=== PATIENT | female | born 1960 | race Caucasian/White ===

== ENCOUNTER 2016-07-13 21:09 | Inpatient (IN) | payer BC, OTHER ==
[~2016-07-13] VITALS: Ht 157.5 cm; Wt 106.5 kg
[~2016-07-13 21:09] MED LIST: ALBUAER INH; ASPI81TA21 PO; ATOR10TA88 PO; BNC40 PO; CYAN10004 PO; ERGO1TAB12 PO; FLUO40CA8 PO; GLC/500 PO; HYDR25TA4 PO; LEVO75TA36 PO; METO50TA7 PO; PLMIN90 INH; SOLI10TA2 PO
[2016-07-13] MEDS ORDERED: METHYLPREDNISOLONE 125 MG VIAL IV STA (21:30)
[2016-07-13] MEDS ORDERED: ALBUT/IPRATROP 3MG/0.5MG NEB 3 ML VIAL INH STA (21:30)
--- NOTE | 2016-07-13 21:52 | DIAGNOSTIC IMAGING REPORT ---
CHEST ONE VIEW PORTABLE CLINICAL HISTORY: cough/sob/syncope dyspnea COMPARISON STUDY: 08/28/2012 FINDINGS: The bones soft tissues and hemidiaphragms are normal. The cardiomediastinal silhouette is normal. The lungs are clear. The pulmonary vasculature is normal. IMPRESSION: Negative chest. Electronically signed by: Jerad Francisco M.D. 07/13/2016 9:50 PM
[2016-07-13 22:00] LABS: BASO % 0.6 %; BASO ABS # 0.04 K/uL (0-0.2); COMPLETE YES; EOS % 0.8 %; HEMATOCRIT 37.5 % (37-47); IG% 0.2 %; LYMPH % 17.2 %; MEAN CELL VOLUME 85.6 fL (80-100); MEAN CORPUSCULAR HEMOGLOBIN 29.2 pg (25-34); MEAN CORPUSCULAR HGB CONC 34.1 g/dl (32-36); MEAN PLATELET VOLUME 9.1 fL (7.4-10.4); MONO % 15.1 %; NEUT % 66.1 %; PLATELET COUNT 282 K/uL (130-400); RED BLOOD COUNT 4.38 M/uL (4.2-5.4); WHITE BLOOD COUNT 6.41 K/uL (4.8-10.8)
[2016-07-13 22:10] LABS: INR 1.1 (0.9-1.1); PARTIAL THROMBOPLASTIN RATIO 1.1; PROTHROMBIN TIME (PATIENT) 11.4 SECONDS (9.0-12.0)
[2016-07-13 22:12] LABS: POINT OF CARE PRO-BNP 169 pg/ml (0-900)
[2016-07-13] MEDS ORDERED: SODIUM CHLORIDE 0.9% 500ML 500 ML IV STA ×2 (22:16→22:27)
[2016-07-13] MEDS ORDERED: SODIUM CHLORIDE 0.9% 1000ML 1,000 ML IV STA (22:16)
[2016-07-13 22:22] LABS: ALT/SGPT 30 U/L (12-78); BLOOD UREA NITROGEN 21 mg/dl (7-18); BUN/CREATININE RATIO 10.2 (10-20); CALCIUM 8.6 mg/dl (8.5-10.1); CARBON DIOXIDE 26 mmol/L (21-32); CHLORIDE 96 mmol/L (98-107); GLUCOSE 138 mg/dl (70-99); MAGNESIUM 1.5 mg/dl (1.8-2.4); POTASSIUM 3.3 mmol/L (3.5-5.1); SODIUM 135 mmol/L (136-145)
[2016-07-13] MEDS ORDERED: LEVO75TA5 PO (22:23)
[2016-07-13] MEDS ORDERED: CYM60 PO (22:23)
[2016-07-13] MEDS ORDERED: PRVC/20 PO (22:23)
[2016-07-13] MEDS ORDERED: TPRSR/50 PO (22:23)
[2016-07-13] MEDS ORDERED: OLME40TA33 PO (22:23)
[2016-07-13] MEDS ORDERED: HYDR25TA5 PO (22:23)
[2016-07-13] MEDS ORDERED: GLC500 PO (22:23)
[2016-07-13] MEDS ORDERED: OPTIRAY 320 IV PRN (22:30)
[2016-07-13 22:33] LABS: ALB/GLOB RATIO 0.9 (0.9-2); ALKALINE PHOSPHATASE 86 U/L (45-117); AST/SGOT 21 U/L (15-37)
[2016-07-14] VITALS (8 sets, daily range): BP systolic 96–135; BP diastolic 41–77; PULSE 89–98; TEMP 36.7–37.2; O2SAT 88–95; Ht 157.5 cm; Wt 106.5 kg
[2016-07-14] MEDS ORDERED: BUDESONIDE 90 MCG INH INH PRN (00:30)
[2016-07-14] MEDS ORDERED: ALUMINUM/MAGNESIUM/SIMETH (MAALOX MAX) 30 ML UDC PO PRN (00:30)
[2016-07-14] MEDS ORDERED: ACETAMINOPHEN 325 MG TAB PO PRN (00:30)
[2016-07-14] MEDS ORDERED: MAGNESIUM HYDROXIDE SUSP 30 ML UDC PO PRN (00:30)
[2016-07-14] MEDS ORDERED: POLYETHYLENE (MIRALAX) 17 GM PACK PO PRN (00:30)
[2016-07-14] MEDS ORDERED: ONDANSETRON INJ 2 MG/ML 2 ML VIAL IV PRN (00:30)
[2016-07-14] MEDS ORDERED: ALBUTEROL HFA 8 GM INHALER INH PRN (00:30)
--- NOTE | 2016-07-14 00:52 | EMERGENCY ROOM VISIT NOTE ---
History First contact with patient: 21:20 Chief Complaint: COUGH Stated Complaint: COUGHING TILL PASSING OUT Nursing Triage Summary: patient with cough and has been passing out with it. total of 4 times today and 2 yesterday/. History of Present Illness The patient is a 56 year old female who presents to the Emergency Department by private vehicle with her family for evaluation of her coughing episodes and syncope. Patient has been sick for the past few days. She reports that she mainly has a cough as well as some occasional shortness of breath and lightheadedness. She's had an ongoing issue with coughing to the point that she passes out. This is not a new issue for the patient when she is ill. She does report, however, that something seems "different" about these episodes of syncope. Typically, when she passes out, it is only for a few seconds and she is alert and aware to where she is at. She reports that most recently after long coughing episodes she has passed out and woken up and been unaware of what has happened. Her daughter, an RN in the emergency department, has witnessed the past 3 episodes and reports that they certainly do seem different from what she remembers over the past 10 years of this condition. She reports that the patient has typically been unconscious for several seconds and awakes somewhat shaky afterwards and unaware of the events which is certainly not typical for the patient. Patient's daughter has been sick with similar symptoms recently. She has had fevers which have waxed and waned throughout the last several days. She complains of body aches and pains. She denies any nasal congestion or sore throat. She reports a mild frontal headache. She reports this is not the worst headache of her life. She rates her current discomfort as a 5/10. The patient denies any dizziness, blurry vision, double vision, slurred speech, facial droop, unilateral weakness/numbness, chest pain, palpitations, hemoptysis , hematochezia, melena, hematuria, or dysuria. Of note, the patient is treated for diabetes, hypertension, and hyperlipidemia. She reports that she recently was placed on Lasix as well as metoprolol. Lasix was added as the patient has had lower extremity edema to the bilateral lower extremities which is increased over the last several months. She's had no imaging studies performed of her lower extremity's to this point. In addition, she was placed on metoprolol in addition to HCTZ and Benicar for better control of her hypertension. Review of Systems A complete 10-point Review of Systems was discussed with the patient, with pertinent positives and negatives listed in the History of Present Illness. All remaining Review of Systems questions can be considered negative unless otherwise specified. Family History Family history was reviewed; no changes noted. Social History Smoking Status: Never Smoker Smokeless Tobacco Use: No Drug Use: none Marital Status: Housing Status: lives with family Occupation Status: employed Current/Historical Medications Scheduled Aspirin Enteric Coated (Ecotrin Or Generic), 81 MG PO DAILY Duloxetine HCl (Duloxetine HCl), 60 MG PO DAILY Hydrochlorothiazide (Hydrochlorothiazide), 25 MG PO DAILY Levothyroxine Sodium (Levothyroxine Sodium), 75 MCG PO DAILY Metformin HCl (Metformin HCl), 500 MG PO BID Metoprolol Succinate (Metoprolol Succinate ER), 50 MG PO QPM Olmesartan Medoxomil (Olmesartan Medoxomil), 40 MG PO DAILY Pravastatin Sod (Pravastatin Sodium), 20 MG PO DAILY Solifenacin (Vesicare), 10 MG PO DAILY Scheduled PRN Albuterol (Proventil Hfa), 2 PUFFS INH Q4-6HRS PRN for Asthma Symptoms/SOB Budesonide (Inhaler) (Pulmicort Flexhaler), 2 PUFFS INH BID PRN for Asthma Symptoms/SOB Allergies Coded Allergies: No Known Allergies (Unverified , 10/03/15) Physical Exam Vital Signs Date Time Temp Pulse Resp B/P Pulse Ox O2 Delivery O2 Flow Rate FiO2 07/13/16 23:48 112/63 07/13/16 23:39 90 21 94 Room Air 07/13/16 23:32 121/68 07/13/16 23:16 119/63 07/13/16 22:39 94 22 94 Room Air 07/13/16 22:25 98/67 07/13/16 22:14 117/60 07/13/16 22:09 90 19 94 Room Air 07/13/16 21:58 93/46 07/13/16 21:55 93/60 07/13/16 21:53 94/61 07/13/16 21:53 79 101/55 96 Room Air 86 94/62 91 93/60 07/13/16 21:52 101/55 07/13/16 21:50 84/67 07/13/16 21:45 94 Room Air 07/13/16 21:39 84 22 95 Room Air 07/13/16 21:38 82 07/13/16 21:36 102/63 07/13/16 21:12 36.8 91 20 94 Room Air Pain Rating (0-10): 5 Physical Exam VITAL SIGNS - Vital signs and nursing notes were reviewed. GENERAL - 56-year-old female appearing her stated age who is in no acute distress. Communicates well with provider and answers questions appropriately. HEAD - NC/AT. EYES - PERRL with EOMI bilaterally. Sclera anicteric. Palpebral conjunctiva pink and moist with no injection noted. EARS - No deformities of external structures noted on gross examination bilaterally. No pain elicited with palpation of the tragus bilaterally. External auditory canals without discharge or otorrhea. Tympanic membranes pearly stern without retraction or bulging. NOSE - Midline and without cyanosis. No epistaxis or purulent drainage noted. Septum midline without deviation or septal hematoma noted. MOUTH/OROPHARYNX - Without perioral cyanosis. Buccal mucosa pink and moist and without leukoplakia. Tongue midline with equal elevation of palate bilaterally. No tonsillar hypertrophy, erythema, or exudates noted. Good dentition noted. NECK - Neck with FROM. Supple to palpation. LUNGS - Chest wall symmetric without accessory muscle use, intercostals retractions, or central cyanosis. Normal vesicular breath sounds CTA B/L. No wheezes, rales, or rhonchi appreciated. CARDIAC - RRR with S1/S2. No murmur, rubs, or gallops appreciated. No reproducible tenderness to palpation appreciated over the anterior chest wall. ABDOMEN - Abdominal contour obese and without pulsations or visible masses. BS normoactive all four quadrants. No tenderness, palpable masses, hepatosplenomegaly, or ascites noted. EXTREMITIES - No clubbing or peripheral cyanosis. Mild pretibial edema present. +3/5 radial and dorsalis pedis pulses palpated throughout. +5/5 strength noted in UE/LE bilaterally. NEUROLOGIC - Cranial nerves II through XII grossly intact. Sensory intact to light touch throughout. PSYCH - A&Ox3 and cooperates fully with examiner. Pt is very pleasant and interacts well with examiner. Medical Decision & Procedures ER Provider Diagnostic Interpretation: Radiological imaging and reports were reviewed by myself. Radiologist's Interpretation as follows: CHEST ONE VIEW PORTABLE CLINICAL HISTORY: cough/sob/syncope dyspnea COMPARISON STUDY: 08/28/2012 FINDINGS: The bones soft tissues and hemidiaphragms are normal. The cardiomediastinal silhouette is normal. The lungs are clear. The pulmonary vasculature is normal. IMPRESSION: Negative chest. Radiological imaging and reports were reviewed by myself. Radiologist's Interpretation per [facility] as follows: US VENOUS BILATERAL LOWER EXTREMITIES: No evidence of DVT in the bilateral lower extremities. Laboratory Results 07/13/16 21:40 Red Blood Count 4.38, Mean Corpuscular Volume 85.6, Mean Corpuscular Hemoglobin 29.2, Mean Corpuscular Hemoglobin Concent 34.1, Mean Platelet Volume 9.1, Neutrophils (%) (Auto) 66.1, Lymphocytes (%) (Auto) 17.2, Monocytes (%) (Auto) 15.1, Eosinophils (%) (Auto) 0.8, Basophils (%) (Auto) 0.6, Neutrophils # (Auto ) 4.24, Lymphocytes # (Auto) 1.10, Monocytes # (Auto) 0.97, Eosinophils # (Auto ) 0.05, Basophils # (Auto) 0.04 07/13/16 21:40 Test 07/13/16 21:40 07/13/16 21:45 07/13/16 21:53 White Blood Count 6.41 K/uL (4.8-10.8) Red Blood Count 4.38 M/uL (4.2-5.4) Hemoglobin 12.8 g/dL (12.0-16.0) Hematocrit 37.5 % (37-47) Mean Corpuscular Volume 85.6 fL (80-100) Mean Corpuscular Hemoglobin 29.2 pg (25-34) Mean Corpuscular Hemoglobin Concent 34.1 g/dl (32-36) Platelet Count 282 K/uL (130-400) Mean Platelet Volume 9.1 fL (7.4-10.4) Neutrophils (%) (Auto) 66.1 % Lymphocytes (%) (Auto) 17.2 % Monocytes (%) (Auto) 15.1 % Eosinophils (%) (Auto) 0.8 % Basophils (%) (Auto) 0.6 % Neutrophils # (Auto) 4.24 K/uL (1.4-6.5) Lymphocytes # (Auto) 1.10 K/uL (1.2-3.4) Monocytes # (Auto) 0.97 K/uL (0.11-0.59) Eosinophils # (Auto) 0.05 K/uL (0-0.5) Basophils # (Auto) 0.04 K/uL (0-0.2) RDW Standard Deviation 42.4 fL (36.4-46.3) RDW Coefficient of Variation 13.6 % (11.5-14.5) Immature Granulocyte % (Auto) 0.2 % Immature Granulocyte # (Auto) 0.01 K/uL (0.00-0.02) Prothrombin Time 11.4 SECONDS (9.0-12.0) Prothromb Time International Ratio 1.1 (0.9-1.1) Activated Partial Thromboplast Time 29.0 SECONDS (21.0-31.0) Partial Thromboplastin Ratio 1.1 Anion Gap 13.0 mmol/L (3-11) Est Creatinine Clear Calc Drug Dose 35.3 ml/min Estimated GFR () 30.2 Estimated GFR (Non- 26.0 BUN/Creatinine Ratio 10.2 (10-20) Calcium Level 8.6 mg/dl (8.5-10.1) Magnesium Level 1.5 mg/dl (1.8-2.4) Total Bilirubin 0.6 mg/dl (0.2-1) Aspartate Amino Transf (AST/SGOT) 21 U/L (15-37) Alanine Aminotransferase (ALT/SGPT) 30 U/L (12-78) Alkaline Phosphatase 86 U/L (45-117) Total Creatine Kinase 72 U/L (26-192) Creatine Kinase MB < 0.5 ng/ml (0.5-3.6) Creatine Kinase MB Ratio (0-3.0) Total Protein 6.8 gm/dl (6.4-8.2) Albumin 3.3 gm/dl (3.4-5.0) Globulin 3.5 gm/dl (2.5-4.0) Albumin/Globulin Ratio 0.9 (0.9-2) Lipase 63 U/L (73-393) Thyroid Stimulating Hormone (TSH) 1.070 uIu/ml (0.300-4.500) Influenza Type A Antigen POS for Influ A (NEG) Influenza Type B Antigen Neg for Influ B (NEG) Bedside D-Dimer > 450 ng/mlFEU (0-450) Bedside Troponin I 0.000 ng/ml (0-0.045) FP-Hmh-M-Type Natriuretic Peptide 169 pg/ml (0-900) Medications Administered Medications (Trade) Dose Ordered Sig/Susanne Route Start Time Stop Time Status Last Admin Dose Admin Methylprednisolone Sodium Succinate (Solu-Medrol IV) 125 mg NOW STAT IV 07/13/16 21:30 07/13/16 21:33 DC 07/13/16 21:30 125 MG Albuterol/ Ipratropium 3 ml 3 ml NOW STAT INH 07/13/16 21:30 07/13/16 21:33 DC 07/13/16 21:30 3 ML Sodium Chloride 500 ml @ 999 mls/hr Q31M STAT IV 07/13/16 22:16 07/13/16 22:46 DC 07/13/16 22:16 999 MLS/HR Sodium Chloride 1,000 ml @ 125 mls/hr Q8H STAT IV 07/13/16 22:16 07/14/16 06:15 07/13/16 22:16 125 MLS/HR Sodium Chloride (Nss 500ml) 500 ml @ 999 mls/hr Q31M STAT IV 07/13/16 22:27 07/13/16 22:57 DC 07/13/16 22:27 999 MLS/HR Procedure Patient was placed on the bargeman and monitored throughout the entire extent of their stay. In addition, the patient's pulse oximetry was monitored throughout the entire stay. Any abnormalities or aberrancies were addressed appropriately. ECG Indication: SOB/dyspnea, syncope Rate (beats per minute): 81 Rhythm: normal sinus Findings: no acute ischemic change, no ectopy Change: no significant change (from 08/28/2012.) ED Course Patient was seen and evaluated by myself. Previous emergency department visit notes were reviewed. Labs were drawn, saline lock in place. Patient was treated with 125 milligrams Solu-Medrol intravenously and 1 DuoNeb. I was approached by nursing staff informed me that while the patient was having a coughing fit, she went unconscious for approximately 8 seconds. Her pulse ox was found to be 85 on room air at this point. She easily woke, but was unaware where she was at initially. Chest x-ray and EKG had been obtained by this time. She did not become bradycardic. Laboratory results demonstrate no acute leukocytosis, worrisome anemia, or bandemia. The patient has no significant electrolyte abnormalities. She was found to be moderately dehydrated with a creatinine of 2.10 and BUN of 21. Cardiac enzymes and troponin were negative. BNP was not elevated. D-dimer was barely elevated at 452. Patient was found to be influenza A positive. Patient was hydrated with 1000 mL normal saline bolus followed by 1000 mL of normal saline and a rate of 125 mL per hour. Patient was reevaluated and resting comfortably at this point. Laboratory results and imaging studies were reviewed with the patient who acknowledges understanding. Patient will be admitted for further evaluation and management. Patient was sent for ultrasounds of the bilateral lower extremity. Patient was admitted in fair condition. Medical Decision Given the patient's presentation and stated complaints, I did elect to perform the above-mentioned workup. The patient resents today having multiple episodes of coughing syncope. She has had subjective fevers. She has had this coughing syncope in the past, however she reports that it has been different as she is been unconscious for longer and has not had recollection of the event upon awakening. In addition, the patient has had the addition of metoprolol to her medications as well as Lasix. Given the setting of syncope, I did evaluate from a cardiopulmonary standpoint. Troponin was initially negative as were cardiac enzymes. BNP does not suggest heart failure nor does her physical exam or chest x-ray which was otherwise unremarkable. Her d-dimer was found to be 452 which is essentially normal when compared to the threshold of 450. I am less concerned for PE at this time. Of greater concern is the fact the patient was found to be moderately dehydrated with an acute kidney injury. Her creatinine was found to be 2.10. This is certainly abnormal from her baseline. In addition, the patient was influenza A+. I am suspicious that the patient may be experiencing prerenal azotemia secondary to her upper respiratory infection and illness. This certainly may be complicated by the use of Lasix as well. The patient has had a previous history of coughing sig be which is not a complete anomaly, however I question if the patient may be experiencing a mild over beta-blockade secondary to her azotemia and recent addition of metoprolol for better control her blood pressure. She appears to be relatively hypotensive in comparison to her priors. Regardless, the patient warrants IV hydration and close monitoring of her creatinine and blood pressures. [facility]. Patient admitted in stable condition. In the evaluation and treatment of this patient, the following differential diagnoses were considered: AR, ASC, Dysrhythmia, Angina, Mediastinitis, GERD, Esophagitis, PE, Pneumonia, Bronchitis, Costochondritis, Rib Fracture, Zoster. Impression Primary Impression: Cough syncope Additional Impressions: Acute kidney injury, Influenza A Departure Information Dispostion Admitted as an inpatient Condition [facility] Referrals Pro,Nas Chacon M.D. (PCP) Patient Instructions A Signature Page, My [facility]
--- NOTE | 2016-07-14 01:00 | History and Physical ---
History & Physical Date & Time of Service: Jul 14, 2016 at 00:39 Chief Complaint: Coughing Till Passing Out Primary Care Physician: Nas Johnston M.D. History of Present Illness Source: patient, family 56 y/o F w/Hx HTN, asthma, cough syncope. The pt developed a respiratory illness this past Monday and has been coughing frequently as a result. While it is not unusual for her to suffer syncopal episodes related to coughing, she has had a total of 7 syncopal episodes today - 2 which were witnessed in the ER. Her family states that she appears to become flushed, exhibits some upper extremity twitching, makes choking noises and has subsequent periods of brief disorientation following these episodes. They state that this is not characteristic of her normal episodes which usually occur following a prolonged coughing spell. There have been no associated arrhythmias although it was noted that her pulse ox would dip into the mid 80s during an episode. She denies CP, denies N/V, SÁNCHEZ or dysuria - she denies significant SOB. She was recently also placed on a 2 week course of Lasix due to LE edema which she has been taking EOD and has 2 doses left. While taking lasix she was instructed to cut her B tabitha dose in half. Initial labs in the ER are notable for ARF in addition to a + rapid influenza A. Past Medical/Surgical History 1) HTN 2) Cough syncope 3) Asthma 4) Hypothyroidism Family History Diabetes mellitus FHx: cancer FHx: gallbladder disease FHx: heart disease Hypertension Social History Smoking Status: Never Smoker Marital Status: Occupational Status: employed Multi-Drug Resistant Organisms History of MDRO: No Allergies Coded Allergies: No Known Allergies (Unverified , 10/03/15) Home Medications Scheduled Aspirin Enteric Coated (Ecotrin Or Generic), 81 MG PO DAILY Duloxetine HCl (Duloxetine HCl), 60 MG PO DAILY Hydrochlorothiazide (Hydrochlorothiazide), 25 MG PO DAILY Levothyroxine Sodium (Levothyroxine Sodium), 75 MCG PO DAILY Metformin HCl (Metformin HCl), 500 MG PO BID Metoprolol Succinate (Metoprolol Succinate ER), 50 MG PO QPM Olmesartan Medoxomil (Olmesartan Medoxomil), 40 MG PO DAILY Pravastatin Sod (Pravastatin Sodium), 20 MG PO DAILY Solifenacin (Vesicare), 10 MG PO DAILY Scheduled PRN Albuterol (Proventil Hfa), 2 PUFFS INH Q4-6HRS PRN for Asthma Symptoms/SOB Budesonide (Inhaler) (Pulmicort Flexhaler), 2 PUFFS INH BID PRN for Asthma Symptoms/SOB Review of Systems Constitutional: + fever, No chills, No sweats Eyes: No eye pain, No worsening of vision ENT: No hearing loss, No nasal symptoms, No unusual epistaxis Respiratory: + cough, + sputum Cardiovascular: No PND, No chest pain, No orthopnea Abdomen: No nausea, No pain, No vomiting Musculoskeletal: No joint pain Genitourinary - Female: No dysuria, No urinary frequency, No urinary urgency Neurologic: + problem reported (Multiple syncopal episodes correlated with coughing spells), No memory loss, No paralysis Psychiatric: No depression symptoms Endocrine: No fatigue Hematologic / Lymphatic: No abnormal bleeding/bruising Integumentary: No rash Physical Exam Vital Signs Date Time Temp Pulse Resp B/P Pulse Ox O2 Delivery O2 Flow Rate FiO2 07/13/16 23:48 112/63 07/13/16 23:39 90 21 94 Room Air 07/13/16 23:32 121/68 07/13/16 23:16 119/63 07/13/16 22:39 94 22 94 Room Air 07/13/16 22:25 98/67 07/13/16 22:14 117/60 07/13/16 22:09 90 19 94 Room Air 07/13/16 21:58 93/46 07/13/16 21:55 93/60 07/13/16 21:53 94/61 07/13/16 21:53 79 101/55 96 Room Air 86 94/62 91 93/60 07/13/16 21:52 101/55 07/13/16 21:50 84/67 07/13/16 21:45 94 Room Air 07/13/16 21:39 84 22 95 Room Air 07/13/16 21:38 82 07/13/16 21:36 102/63 07/13/16 21:12 36.8 91 20 94 Room Air General Appearance: WD/WN, no apparent distress Head: normocephalic Eyes: normal inspection, PERRL, EOMI ENT: normal ENT inspection, pharynx normal Neck: supple, no JVD Respiratory/Chest: chest non-tender, lungs clear, normal breath sounds, no respiratory distress, no accessory muscle use Cardiovascular: regular rate, rhythm, no edema, no gallop, no JVD Abdomen/GI: normal bowel sounds, non tender, soft Extremities/Musculoskelatal: normal inspection, no calf tenderness, normal capillary refill, no pedal edema, normal range of motion Neurologic/Psych: manager strategy II-XII nml as tested, no motor/sensory deficits, alert, normal mood/affect, normal reflexes, oriented x 3 Skin: normal color, warm/dry, no rash Diagnostics Laboratory Results Results Past 24 Hours Test 07/13/16 21:40 07/13/16 21:45 07/13/16 21:53 Range/Units White Blood Count 6.41 4.8-10.8 K/uL Red Blood Count 4.38 4.2-5.4 M/uL Hemoglobin 12.8 12.0-16.0 g/dL Hematocrit 37.5 37-47 % Mean Corpuscular Volume 85.6 80-100 fL Mean Corpuscular Hemoglobin 29.2 25-34 pg Mean Corpuscular Hemoglobin Concent 34.1 32-36 g/dl Platelet Count 282 130-400 K/uL Mean Platelet Volume 9.1 7.4-10.4 fL Neutrophils (%) (Auto) 66.1 % Lymphocytes (%) (Auto) 17.2 % Monocytes (%) (Auto) 15.1 % Eosinophils (%) (Auto) 0.8 % Basophils (%) (Auto) 0.6 % Neutrophils # (Auto) 4.24 1.4-6.5 K/uL Lymphocytes # (Auto) 1.10 1.2-3.4 K/uL Monocytes # (Auto) 0.97 0.11-0.59 K/uL Eosinophils # (Auto) 0.05 0-0.5 K/uL Basophils # (Auto) 0.04 0-0.2 K/uL RDW Standard Deviation 42.4 36.4-46.3 fL RDW Coefficient of Variation 13.6 11.5-14.5 % Immature Granulocyte % (Auto) 0.2 % Immature Granulocyte # (Auto) 0.01 0.00-0.02 K/uL Prothrombin Time 11.4 9.0-12.0 SECONDS Prothromb Time International Ratio 1.1 0.9-1.1 Activated Partial Thromboplast Time 29.0 21.0-31.0 SECONDS Partial Thromboplastin Ratio 1.1 Sodium Level 135 136-145 mmol/L Potassium Level 3.3 3.5-5.1 mmol/L Chloride Level 96 98-107 mmol/L Carbon Dioxide Level 26 21-32 mmol/L Anion Gap 13.0 3-11 mmol/L Blood Urea Nitrogen 21 7-18 mg/dl Creatinine 2.10 0.60-1.20 mg/dl Est Creatinine Clear Calc Drug Dose 35.3 ml/min Estimated GFR () 30.2 Estimated GFR (Non- 26.0 BUN/Creatinine Ratio 10.2 10-20 Random Glucose 138 70-99 mg/dl Calcium Level 8.6 8.5-10.1 mg/dl Magnesium Level 1.5 1.8-2.4 mg/dl Total Bilirubin 0.6 0.2-1 mg/dl Aspartate Amino Transf (AST/SGOT) 21 15-37 U/L Alanine Aminotransferase (ALT/SGPT) 30 12-78 U/L Alkaline Phosphatase 86 45-117 U/L Total Creatine Kinase 72 26-192 U/L Creatine Kinase MB < 0.5 0.5-3.6 ng/ml Creatine Kinase MB Ratio 0-3.0 Total Protein 6.8 6.4-8.2 gm/dl Albumin 3.3 3.4-5.0 gm/dl Globulin 3.5 2.5-4.0 gm/dl Albumin/Globulin Ratio 0.9 0.9-2 Lipase 63 73-393 U/L Thyroid Stimulating Hormone (TSH) 1.070 0.300-4.500 uIu/ml Influenza Type A Antigen POS for Influ A NEG Influenza Type B Antigen Neg for Influ B NEG Bedside D-Dimer > 450 0-450 ng/mlFEU Bedside Troponin I 0.000 0-0.045 ng/ml QO-Nhr-M-Type Natriuretic Peptide 169 0-900 pg/ml Diagnostic Radiology CXR WNL EKG NSR - cannot r/o previous inf infarct Impression Assessment and Plan 56 y/o F w/Hx HTN, asthma, cough syncope. The pt developed a respiratory illness this past Monday and has been coughing frequently as a result. While it is not unusual for her to suffer syncopal episodes related to coughing, she has had a total of 7 syncopal episodes today - 2 which were witnessed in the ER. There have been no associated arrhythmias although it was noted that her pulse ox would dip into the mid 80s during an episode. She denies CP, denies N/V, SÁNCHEZ or dysuria - she denies significant SOB. She was recently also placed on a 2 week course of Lasix due to LE edema which she has been taking EOD and has 2 doses left. While taking lasix she was instructed to cut her B tabitha dose in half. Initial labs in the ER are notable for ARF in addition to a + rapid influenza A. 1) Cough syncope - Despite behaving differently during these episodes it is unlikely that the underlying etiology has changed - she may be exhibiting concomitant laryngospasm and the episodes may be exacerbated by her underlying illness and dehydration related to Lasix use. We will monitor her on telemetry and suppress her cough with Robitussin AC and Prednisone. If her symptoms persist or worsen, a cardiology consult can be obtained. 2) Influenza - she is not in the window for Tamiflu so that supportive measures only will be provided 3) ARF - denies decreased PO intake - likely the result of Lasix use - we will hold diuretics and her ARB and provide aggressive hydration - labs will be trended - urine studies and a nephrology consult can be obtained if there is no improvement. 4) Asthma - no evidence of acute exacerbation - cont inhalers 5) HTN - Bblocker dose will be returned to baseline as ARB and diuretics have been held. Full code - SCDs only for prophylaxis considering current fall risk total time for this admit including review of records, labs, imaging, med rec - discussion with pt/family and ER attending - 37 min Level of Care Telemetry Resuscitation Status FULL RESUSCITATION VTE Prophylaxis VTE Risk Assessment Done? Y/N: Yes Risk Level: Low Given or contraindicated: SCD's
[2016-07-14 05:07] LABS: BUN/CREATININE RATIO 11.5 (10-20); CALCIUM 8.1 mg/dl (8.5-10.1); CREATININE 1.8 mg/dl (0.60-1.20); MAGNESIUM 1.6 mg/dl (1.8-2.4); PHOSPHORUS 3.9 mg/dl (2.5-4.9); POTASSIUM 4.1 mmol/L (3.5-5.1)
[2016-07-14] MEDS: NSS + 20MEQ KCL 1000ML 1,000 ML IV SCH ×2 (05:39→11:26)
--- NOTE | 2016-07-14 06:35 | DIAGNOSTIC IMAGING REPORT ---
BILATERAL LOWER EXTREMITY VENOUS DOPPLER CLINICAL HISTORY: Lower extremity swelling. COMPARISON STUDY: No previous studies for comparison. TECHNIQUE: Sonography of the deep venous system of the bilateral lower extremities was performed. Compression and augmentation were evaluated. FINDINGS: The bilateral common femoral, superficial femoral and popliteal veins were compressible. Augmentation was normal. Flow was shown within the deep calf vessels. IMPRESSION: No evidence of deep venous thrombus within the bilateral lower extremities. Electronically signed by: Be Salinas M.D. 07/14/2016 6:33 AM
[2016-07-14] MEDS: DULOXETINE HCL 60 MG CAP PO SCH (07:48)
[2016-07-14] MEDS: LEVOTHYROXINE 75 MCG TAB PO SCH (07:48)
[2016-07-14] MEDS: PRAVASTATIN SOD 20 MG TAB PO SCH (07:48)
[2016-07-14] MEDS: ASPIRIN 81 MG ECTAB PO SCH (07:48)
[2016-07-14] MEDS: INSULIN ASPART 100 UNITS/ML 3 ML PEN SC SCH ×4 (07:51→21:00)
[2016-07-14] MEDS ORDERED: OLMESARTAN MEDOXOMIL 40 MG TAB PO SCH (09:00)
[2016-07-14] MEDS ORDERED: OSELTAMIVIR PHOSPHATE 75 MG CAP PO SCH (09:00)
[2016-07-14] MEDS: MAGNESIUM SULFATE 1GM / D5W 1 GM in PREMIXED IN D5W 100 ML IV SCH ×2 (10:26→11:26)
[2016-07-14] MEDS ORDERED: OSELTAMIVIR PHOSPHATE SUSP 30 MG/5 ML UDP PO ONE (10:58)
[2016-07-14] MEDS ORDERED: NURSING VERBAL MED ORDER ONE (11:00)
[2016-07-14] MEDS ORDERED: LANTUS PER UNIT CHARGE SQ SCH (11:30)
--- NOTE | 2016-07-14 14:25 | PULMONARY CONSULTATION ---
DATE OF CONSULTATION: 07/14/2016 TIME: 01:30 p.m. HISTORY OF PRESENT ILLNESS: The patient was seen in room 111. She is a 56-year-old female who has a longstanding history of tussive syncope. This has been occurring for 6 years or more. She would have on average between 2 and 4 episodes per year. She has a diagnosis of asthma. The asthma is only bothersome when she has a cold or infection or if she is significantly exercising. She became ill 4 days ago. The first day, she thought she was just getting a cold. The second day, she had a headache. The following day, she developed cough and shortness of breath. She began having some episodes of syncope. She had had approximately 7 episodes yesterday, 2 of which were witnessed in the Emergency Room. It is reported that her family noted that she would become flushed, have some upper extremity twitching, make some choking noises, and then subsequently would have a brief disorientation following the episodes. This was not the way her usual episodes of tussive syncope have been. However, the patient acknowledges that she has never passed out except when she was having a coughing spell. She is diagnosed with influenza. However, for the entire time that I was with her during the exam, which was approximately 30 minutes, she did not cough at all. She also does not appear to be short of breath. Her breathing is apparently better since she has been getting treated here in the hospital. She has not been expectorating any phlegm. Her cough has totally been dry. She states that she has 1 dog at home, but she is clearly not sensitive to the dog. She had allergy testing done that she states was negative. The patient has never smoked. She does not drink any alcohol. PAST MEDICAL HISTORY: 1. Hypothyroidism. 2. Hypertension. 3. Hypercholesterolemia. 4. Hyperactive bladder. 5. Diabetes. 6. Chronic headaches, for which she used to see Dr. Graham. ALLERGIES: No known allergies. 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 FAMILY HISTORY: Her daughter has asthma. Father is living, age 78, hypertension. Mother living, age 79, CLL. MEDICATIONS: At home: 1. Aspirin 81 mg daily. 2. Duloxetine 60 mg daily. 3. HCTZ 25 mg daily. 4. Levothyroxine 75 mcg daily. 5. Metformin 500 mg b.i.d. 6. Metoprolol 50 mg daily. 7. Olmesartan medoxomil 40 mg daily. 8. Pravastatin 20 mg daily. 9. VESIcare 10 mg daily. 10. Albuterol 2 puffs p.r.n. 11. Pulmicort Flexhaler 180 mcg 2 puffs b.i.d. -- She only takes when she has asthma symptoms. REVIEW OF SYSTEMS: The patient complains of daytime tiredness. She is sleepy during the day. She has had a history of snoring. She has had 2 sleep studies done that were both negative. Recently, she has had some heartburn. This would be as much as 2 times per week. The remainder of review of systems is negative except for what is noted above. PHYSICAL EXAMINATION: GENERAL: The patient is a pleasant 56-year-old female who was cooperative, alert and oriented. She was in no distress. BMI is elevated at 43.3. VITAL SIGNS: She has been afebrile. HEENT: Pupils were reactive to light. Nares were clear. MOUTH: Negative. NECK: Palpation of the neck reveals no lymph nodes. CHEST: Normal expansion and development. Heart rate was 100 per minute. The rhythm was regular. I believe she has a summation gallop. Lung curtis were clear bilaterally. No wheezes, rales or rhonchi were heard. Respiratory rate was 16 breaths per minute. ABDOMEN: Soft. It was nontender. No masses were palpable. EXTREMITIES: Showed no cyanosis, clubbing or edema. Chest x-ray done on admission was negative. Venous Doppler was negative. LABORATORY DATA: White count was 6.41, hemoglobin 12.8, and platelets 282,000. Coags are normal. D-dimer was greater than 450. Electrolytes showed sodium 135, potassium 4.1, chloride 97, and bicarbonate 27. The BUN was 21 with a creatinine of 1.8. Creatinine on admission was 2.1. Blood sugar this morning 251. Magnesium was low at 1.6. ProBNP was 169. TSH was 1.07. Flu test was positive for influenza A. Chest x-ray was clear. IMPRESSION: 1. Tussive syncope. 2. Acute influenza A. 3. Asthma. 4. Mild gastroesophageal reflux disease. COMMENTS AND RECOMMENDATIONS: The patient obviously has a very low threshold for tussive syncope. I believe that is the diagnosis. The patient describes that every time she has passed ever, this involved a coughing spell. She is not coughing much at present. On exam, she sounded like she had somewhat of a gallop and her heart rates are high normal with rates approximating 100. She is to have a cardiac evaluation. Perhaps an echo is appropriate, but we will defer to cardiology. She has an elevated D-dimer. Venous Dopplers were negative. This would seem to be a very unusual manifestation of pulmonary embolic disease. She cannot take CAT scan dye due to her renal insufficiency. Overall, would seem quite unlikely that this would be a presentation of pulmonary emboli. The patient seems to be clinically doing well. I will defer to the hospitalist service as to whether they feel a neurology evaluation is indicated. I explained to the patient that she must not drive once she starts to get a cold and has any coughing symptoms at all because of her frequency of the passing out spells. She has never had it happened while driving and she has only had it happened at work on one occasion. Thank you for asking me to assist in her care.
--- NOTE | 2016-07-14 16:18 | Cardiology Consultation ---
Cardiology Consultation Date of Consultation: Jul 14, 2016. Requesting Physician: Dr. Sullivan Attending Physician: Dr. Whitaker Reason for Consultation: Syncope Pt evaluation today including: conversation w/ patient, physical exam, chart review, lab review, review of studies, review of inpatient medication list, conversation w/ attending History of Present Illness Mrs. Grayson is a 56-year-old female with a past medical history significant for hypertension, type 2 diabetes mellitus, hyperlipidemia, hypothyroidism, asthma, and tussive syncope who presented to the ED on 07/13/16 with complaints of cough and syncope. Her recent history began when she was seen in her primary care physician's office on 07/05/16 for lower extremity edema. She was initiated on Lasix 20 mg every other day for a few days at that time. On 07/10/16, she developed a dry cough. She also noted a sore throat and tiredness/fatigue. The coughing worsened on Monday, and she had two episodes of very hard, forceful coughing. During the episodes, her face became flushed and she then lost consciousness for about 8-10 seconds. This continued on Monday, and she notes 5 episodes of syncope before presented to the ED for further evaluation. She reportedly had another syncopal event related to coughing in the ED, which was witnessed. There were no correlated arrhythmias by report, but her pulse ox dropped to the mid 80's during an episode. She was found to have acute kidney injury, and she was also positive for influenza A. Of note, she reports a 6-8 year history of syncope related to coughing. She is usually unconscious for a couple of seconds before regaining consciousness. Patient seen at bedside today. She reports that she has been feeling better. She has not had a syncopal event since she had the witnessed event in the ED. She continues to cough at times and notes some soreness in her chest in relationship to the coughing. She denies any other chest pain or anginal type symptoms. She feels short of breath with coughing. She denies exertional dyspnea , orthopnea, PND, or edema. She further denies palpitations, lightheadedness, dizziness, abnormal bleeding, cerebrovascular symptoms, or GI/ symptoms. Review of Systems: As noted in HPI. All other 10 point ROS otherwise negative. Past Medical/Surgical History Hypertension, type 2 diabetes mellitus, hx of Vitamin D and B12 deficiency, hypothyroidism, hyperlipidemia, asthma, s/p tubal ligation Family History Diabetes mellitus FHx: cancer FHx: gallbladder disease FHx: heart disease Hypertension No family hx of premature CAD Social History Smoking Status: Never Smoker History of Alcohol Use: No She is with 2 children. 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 She denies smoking, alcohol, or drug use. Allergies Coded Allergies: No Known Allergies (Unverified , 10/03/15) Medications Current Inpatient Medications Medications (Trade) Dose Ordered Sig/Susanne Route Start Time Stop Time Status Last Admin Dose Admin Ioversol (Optiray 320) 100 ml UD PRN IV 07/13/16 22:30 07/17/16 22:29 Albuterol (Ventolin Hfa Inhaler) 2 puffs Q4H PRN INH 07/14/16 00:30 08/13/16 00:29 Aspirin (Ecotrin Tab) 81 mg DAILY PO 07/14/16 09:00 08/13/16 08:59 07/14/16 07:48 81 MG Budesonide (Pulmicort Inhaler) 2 puffs BID PRN INH 07/14/16 00:30 08/13/16 00:29 Duloxetine HCl (Cymbalta Cap) 60 mg DAILY PO 07/14/16 09:00 08/13/16 08:59 07/14/16 07:48 60 MG Levothyroxine Sodium (Synthroid Tab) 75 mcg DAILYBB PO 07/14/16 06:05 08/13/16 06:59 07/14/16 07:48 75 MCG Pravastatin Sodium (Pravachol Tab) 20 mg DAILY PO 07/14/16 09:00 08/13/16 08:59 07/14/16 07:48 20 MG Miscellaneous Information (Order Awaiting Action) 1 ea QS N/A 07/14/16 08:00 08/13/16 07:59 Acetaminophen (Tylenol Tab) 650 mg Q4H PRN PO 07/14/16 00:30 08/13/16 00:29 Al Hydrox/Mg Hydrox/Simethicone (Maalox Max Susp) 15 ml Q4H PRN PO 07/14/16 00:30 08/13/16 00:29 Magnesium Hydroxide (Milk Of Magnesia Susp) 30 ml Q12H PRN PO 07/14/16 00:30 08/13/16 00:29 Ondansetron HCl (Zofran Inj) 4 mg Q6H PRN IV 07/14/16 00:30 08/13/16 00:29 Polyethylene (Miralax Powder Packet) 17 gm DAILY PRN PO 07/14/16 00:30 08/13/16 00:29 Codeine Phosphate/ Guaifenesin (Robitussin-AC Sugar Free Syrup) 5 ml Q6H PRN PO 07/14/16 00:30 08/13/16 00:29 Prednisone 20 mg 20 mg BID PO 07/14/16 09:00 08/13/16 08:59 07/14/16 07:48 20 MG Potassium Chloride/Sodium Chloride (Nss + 20meq KCl 1000ml) 1,000 ml @ 150 mls/hr Q6H40M IV 07/14/16 05:00 07/14/16 18:19 07/14/16 11:26 150 MLS/HR Insulin Aspart (novoLOG ASPART) SLIDING SCALE G... ACHS SC 07/14/16 06:45 08/13/16 06:59 07/14/16 11:29 5 UNITS Oseltamivir Phosphate (Tamiflu Susp) 30 mg BID PO 07/14/16 21:00 07/19/16 20:59 Insulin Glargine (Lantus Per Unit) 10 units 1130 SQ 07/14/16 11:30 07/14/16 12:30 Physical Exam Vital Signs Past 12 Hours Date Time Temp Pulse Resp B/P Pulse Ox O2 Delivery O2 Flow Rate FiO2 07/14/16 08:00 37.2 98 98 118/68 95 Nasal Cannula 2.0 07/14/16 08:00 Nasal Cannula 2.0 07/14/16 05:07 93 07/14/16 04:29 Room Air 07/14/16 04:00 37.0 93 16 96/41 93 Nasal Cannula 2.0 07/14/16 02:27 92 18 113/63 88 Room Air 07/14/16 02:27 96 Nasal Cannula 2.0 07/14/16 01:48 95 16 141/76 95 Room Air 07/14/16 01:30 Room Air 07/14/16 01:23 90 19 92 1/5/17 01:12 37.1 89 16 101/64 94 Room Air 07/14/16 01:06 89 07/14/16 00:59 101/64 07/14/16 00:53 87 19 95 07/14/16 00:23 89 19 92 07/13/16 23:58 114/77 07/13/16 23:53 93 23 94 07/13/16 23:48 112/63 Constitutional: Alert, oriented, in no acute distress HEENT: Head is atraumatic and normocephalic. EOMs intact. Sclera anicteric. Face is symmetric. No perioral cyanosis. Mucous membranes moist. Neck: Supple, no JVD, no carotid bruits Pulmonary: Normal respiratory effort, clear to auscultation bilaterally Cardiac: Regular rate and rhythm, normal S1 and S2, no gallops, no rubs, no murmurs Extremities: No clubbing, cyanosis, or edema. Pulses intact Abdomen: Obese. Normal bowel sounds, soft, non-tender, no abdominal mass palpated Skin: Normal skin color, turgor, and pigmentation, no rash, no skin lesions Neurological: Oriented to person, place, and time Data Laboratory Results: Last 24 Hours Test 07/13/16 21:40 07/13/16 21:45 07/13/16 21:53 07/14/16 04:30 White Blood Count 6.41 K/uL Red Blood Count 4.38 M/uL Hemoglobin 12.8 g/dL Hematocrit 37.5 % Mean Corpuscular Volume 85.6 fL Mean Corpuscular Hemoglobin 29.2 pg Mean Corpuscular Hemoglobin Concent 34.1 g/dl Platelet Count 282 K/uL Mean Platelet Volume 9.1 fL Neutrophils (%) (Auto) 66.1 % Lymphocytes (%) (Auto) 17.2 % Monocytes (%) (Auto) 15.1 % Eosinophils (%) (Auto) 0.8 % Basophils (%) (Auto) 0.6 % Neutrophils # (Auto) 4.24 K/uL Lymphocytes # (Auto) 1.10 K/uL Monocytes # (Auto) 0.97 K/uL Eosinophils # (Auto) 0.05 K/uL Basophils # (Auto) 0.04 K/uL RDW Standard Deviation 42.4 fL RDW Coefficient of Variation 13.6 % Immature Granulocyte % (Auto) 0.2 % Immature Granulocyte # (Auto) 0.01 K/uL Prothrombin Time 11.4 SECONDS Prothromb Time International Ratio 1.1 Activated Partial Thromboplast Time 29.0 SECONDS Partial Thromboplastin Ratio 1.1 Sodium Level 135 mmol/L 135 mmol/L Potassium Level 3.3 mmol/L 4.1 mmol/L Chloride Level 96 mmol/L 97 mmol/L Carbon Dioxide Level 26 mmol/L 27 mmol/L Anion Gap 13.0 mmol/L 11.0 mmol/L Blood Urea Nitrogen 21 mg/dl 21 mg/dl Creatinine 2.10 mg/dl 1.80 mg/dl Est Creatinine Clear Calc Drug Dose 35.3 ml/min 41.2 ml/min Estimated GFR () 30.2 36.3 Estimated GFR (Non- 26.0 31.4 BUN/Creatinine Ratio 10.2 11.5 Random Glucose 138 mg/dl 283 mg/dl Calcium Level 8.6 mg/dl 8.1 mg/dl Magnesium Level 1.5 mg/dl 1.6 mg/dl Total Bilirubin 0.6 mg/dl Aspartate Amino Transf (AST/SGOT) 21 U/L Alanine Aminotransferase (ALT/SGPT) 30 U/L Alkaline Phosphatase 86 U/L Total Creatine Kinase 72 U/L Creatine Kinase MB < 0.5 ng/ml Creatine Kinase MB Ratio Total Protein 6.8 gm/dl Albumin 3.3 gm/dl Globulin 3.5 gm/dl Albumin/Globulin Ratio 0.9 Lipase 63 U/L Thyroid Stimulating Hormone (TSH) 1.070 uIu/ml Influenza Type A Antigen POS for Influ A Influenza Type B Antigen Neg for Influ B Bedside D-Dimer > 450 ng/mlFEU Bedside Troponin I 0.000 ng/ml BB-Hfo-X-Type Natriuretic Peptide 169 pg/ml Phosphorus Level 3.9 mg/dl Test 07/14/16 06:50 Bedside Glucose 251 mg/dl CXR: Negative chest Bilateral lower extremity venous doppler: No evidence of DVT EKG: Normal sinus rhythm. Low voltage QRS. Possible inferior and anterior infarct. Echo 03/06/15: Normal LV size and systolic function, EF 60-65%, with no regional wall motion abnormalities. Mild concentric LVH. No significant valvular abnormalities. Stress echo 05/22/13: Negative for ischemia at 89% MPHR. Assessment & Plan Mrs. Grayson is a 56-year-old female with multiple comorbidities who presented to the ED on yesterday with complaints of persistent cough with multiple syncopal events. She has a history of tussive syncope, and her presenting symptoms appear consistent with this as well. Recommend continuing to monitor on telemetry in case she were to have another event. If she is found to have significant bradycardia during the episode, she may benefit from pacemaker insertion, but there has been no evidence to suggest she needs one at this time. Pulmonary embolism would be in the differential given her elevated D-dimer , although it would be an atypical presentation and venous dopplers showed no DVT bilaterally. Will defer to pulmonology in this regard. Overall, it appears she would benefit most from controlling her cough to reduce the chance of recurrence. Thank you for allowing us to see this patient in consultation. Patient discussed with Dr. Whitaker who will also be in to see her today. CARDIOLOGY ATTENDING ADDENDUM (Dr. Whitaker): Patient seen, interviewed, and examined. Agree with above assessment and recommendations by Tonja Ibrahim PA-C. At the time of my evaluation, the patient was asymptomatic and had not had any further coughing to the point she developed syncope. Her rhythm was sinus and unremarkable. Continue to monitor on telemetry to discern whether there is any concurrent rhythm disturbance during her syncopal episodes (rhythm could remains sinus, a primary rhythm disturbance could result in choking or coughing , or she could have neurally mediated syncope secondary to her cough). If she has no further episodes as an inpatient, could obtain a Holter monitor and/or event monitor to include/exclude cardiac component to her syncopal episodes. We will continue to follow along.
[2016-07-14] MEDS: GUAIFENESIN/CODEINE 100MG/10MG 5ML UDC PO PRN (19:37)
[2016-07-14] MEDS ORDERED: OSELTAMIVIR PHOSPHATE SUSP 30 MG/5 ML UDP PO SCH (21:00)
--- NOTE | 2016-07-14 22:06 | Progress Note ---
Progress Note Pt seen, H&P, Cardiology, and Pulm consults reviewed. Pt doing much better, started on insulin for hyperglycemia from steroids superimposed on prediabetes. No more syncope, no tele events. Coughing much improved. Expect d/c to home tomorrow with possible Holter monitor as outpt with Cardio f/u.
[2016-07-15] MEDS: GUAIFENESIN/CODEINE 100MG/10MG 5ML UDC PO PRN (01:08)
[2016-07-15] MEDS ORDERED: NURSING VERBAL MED ORDER ONE (01:15)
[2016-07-15] MEDS: BENZONATATE 100MG CAP PO SCH ×2 (02:30→09:48)
[2016-07-15 04:08] VITALS: BP 122/64; PULSE 79; TEMP 36.7; O2SAT 95
[2016-07-15 06:02] LABS: BASO % 0.1 %; BASO ABS # 0.01 K/uL (0-0.2); COMPLETE YES; HEMATOCRIT 36.9 % (37-47); IG% 0.1 %; LYMPH % 17.3 %; LYMPH ABS # 1.56 K/uL (1.2-3.4); MEAN CELL VOLUME 88.1 fL (80-100); MEAN CORPUSCULAR HEMOGLOBIN 29.4 pg (25-34); MEAN CORPUSCULAR HGB CONC 33.3 g/dl (32-36); MEAN PLATELET VOLUME 9.1 fL (7.4-10.4); NEUT % 74.5 %; PLATELET COUNT 290 K/uL (130-400); RED BLOOD COUNT 4.19 M/uL (4.2-5.4); WHITE BLOOD COUNT 9.03 K/uL (4.8-10.8)
[2016-07-15] MEDS: LEVOTHYROXINE 75 MCG TAB PO SCH (06:13)
[2016-07-15 06:45] LABS: BUN/CREATININE RATIO 16.2 (10-20); CREATININE 1.2 mg/dl (0.60-1.20); MAGNESIUM 2.1 mg/dl (1.8-2.4); POTASSIUM 3.7 mmol/L (3.5-5.1)
[2016-07-15 08:00] VITALS: BP 114/63; PULSE 76; TEMP 36.7; O2SAT 97
[2016-07-15] MEDS ORDERED: TMF75 PO (08:58)
[2016-07-15] MEDS ORDERED: ADVIN25050 INH (08:58)
[2016-07-15] MEDS ORDERED: GUAISYP4 PO (08:58)
[2016-07-15] MEDS ORDERED: OLME40TA33 PO (08:58)
[2016-07-15] MEDS ORDERED: PRD20 PO (08:59)
[2016-07-15] MEDS ORDERED: OSELTAMIVIR PHOSPHATE 75 MG CAP PO SCH (09:00)
--- NOTE | 2016-07-15 09:11 | Discharge Instructions ---
Discharge Instructions Admission Reason for Admission: Acute kidney injury, Syncope, Influenza A Discharge Discharge Diagnosis / Problem: Acute kidney injury, Tussive Syncope, Influenza A Discharge Goals Goal(s): Improve disease control, Therapeutic intervention Activity Recommendations Activity Limitations: resume your previous activity Do not return to work until Monday07/18/16 . Instructions / Follow-Up Instructions / Follow-Up You were fitted with a Holter monitor to wear for 24 hours prior to leaving the hospital. This will need to be returned to the Cardiology lab when it is completed. You should follow up with Dr. Johnston within 1 week and the [facility] [employer] should be contacting you with your Holter monitor results. Because of your underlying prediabetes, your blood sugar was quite high during admission after you were given prednisone for your cough. You were given Lantus insulin 8 units on the day of discharge that will help control your blood sugars for the next 24 hours. Your kidney function has returned to a safe level for you to restart your metformin, however you should refrain from taking any diuretics at this time. Your dose of olmesartan was also cut in half to 20mg daily for now. Dr. Johnston can adjust your meds as needed at your follow up appointment if your blood pressure starts to rise. Current Hospital Diet Patient's current hospital diet: AHA Diet (Heart Healthy), Diabetes Type 2 Diet Discharge Diet Recommended Diet: AHA Diet (Heart Healthy), Diabetes Type 2 Diet Procedures Procedures Performed: Venous Doppler lower extremities-negative for DVT Chest xray-normal Pending Studies Studies pending at discharge: no Medical Emergencies . Who to Call and When: Medical Emergencies: If at any time you feel your situation is an emergency, please call 911 immediately. . Non-Emergent Contact Non-Emergency issues call your: Primary Care Provider Call Non-Emergent contact if: temperature is above 101, you have any medication questions If you have chest pain, passing out, severe headache, please call your doctor immediately. . . "Provider Documentation" section prepared by Jennifer Sullivan. VTE Core Measure Inpt VTE Proph given/why not?: [facility] [place] Drug Monitoring Program Search Results: patient reviewed within database (not in database)
[2016-07-15] MEDS: PRAVASTATIN SOD 20 MG TAB PO SCH (09:48)
[2016-07-15] MEDS: ASPIRIN 81 MG ECTAB PO SCH (09:48)
[2016-07-15] MEDS: DULOXETINE HCL 60 MG CAP PO SCH (09:48)
[2016-07-15] MEDS ORDERED: INSULIN GLARGINE PER UNIT 8 UNITS in SYRINGE 0 ML SC ONE (10:00)
[2016-07-15 10:28] VITALS: BP 114/63; PULSE 76; TEMP 36.7; O2SAT 97
--- NOTE | 2016-07-15 15:17 | Cardiology Follow-Up ---
Cardiology Follow-Up SUBJECTIVE: 56-year-old woman with asthma, diabetes, and hypertension woman with asthma, diabetes and hypertension who was admitted 07/14/2016 with syncope related to severe coughing episodes. She had an uneventful night with no further syncope and benign rhythm on telemetry. PHYSICAL EXAMINATION: No distress. Vitals: Afebrile, BP 114/63, pulse 76 and regular, Skin: No unusual lesions or ecchymosis. HEENT: Unremarkable. Neck: Jugular venous pulse at the clavicle at 90, no carotid bruits. Lungs: Clear and equal breath sounds bilaterally. No wheezing or crackles. Cardiac: Regular rhythm with normal S1 and S 2. No murmur or gallop. Abdomen: Benign. Extremities: Nontender without edema. Intact peripheral pulses. Neurologic: Normal affect, nonfocal DATA: Normal CBC. Normal electrolytes, BUN 19, creatinine 1.2, magnesium 2.1. Benign telemetry. IMPRESSION: 1. Recurrent syncope, etiology uncertain. 2. Paroxysmal coughing, precipitates syncope. 3. Diabetes mellitus. 4. Asthma, no bronchospasm currently. 5. Hypertension, controlled. DISCUSSION: Uneventful night. Agree with plan to further monitor via Holter to determine whether there is a cardiac/rhythm component to her syncope. If she has an uneventful 24 hours, with an utilize event monitor (if necessary, could even implant a loop recorder) . If any cardiac issues identified on Holter or event monitor, we will be glad to see in cardiology follow-up.
--- NOTE | 2016-07-17 18:22 | Discharge Summary ---
Discharge Summary Admission Date: Jul 14, 2016 at 00:25 Discharge Date: Jul 15, 2016 Discharge Disposition: Home Principal Diagnosis: Tussive syncope Problems/Secondary Diagnoses: Acute kidney injury Influenza A HTN Lower extremity edema-resolved Asthma exacerbation Acute hypoxemic respiratory failure Procedures: None Consultations: Cardiology Pulmonology Medication Reconciliation New Medications: Fluticasone Prop/Salmeterol (Advair Diskus 250-50 Mcg/Dose) 14 Puff/1 Inhaler Aerp 1 PUFF INH BID for 14 Days, #1 INHALER Guaifenesin/Codeine (Robitussin-Ac Syrup) Syrp 5 ML PO Q6H PRN for Cough, #240 ML Oseltamivir Phosphate (Tamiflu) 75 Mg Cap 75 MG PO BID, #7 CAP Prednisone (Prednisone) 20 Mg Tab 20 MG PO BID, #5 TAB x1 day then 1 tab daily x 2 days then 1/2 tab daily x 2 days then stop Changed Medications: Olmesartan Medoxomil (Olmesartan Medoxomil) 40 Mg Tab 20 MG PO DAILY for 30 Days (Changed from: 40 MG) cut your 40mg tabs in half Continued Medications: Albuterol (Proventil Hfa) Aers 2 PUFFS INH Q4-6HRS PRN for Asthma Symptoms/SOB Aspirin Enteric Coated (Ecotrin Or Generic) 81 Mg Tab 81 MG PO DAILY, TAB Duloxetine HCl (Duloxetine HCl) 60 Mg Cap 60 MG PO DAILY Levothyroxine Sodium (Levothyroxine Sodium) 75 Mcg Tab 75 MCG PO DAILY Metformin HCl (Metformin HCl) 500 Mg Tab 500 MG PO BID Pravastatin Sod (Pravastatin Sodium) 20 Mg Tab 20 MG PO DAILY Solifenacin (Vesicare) 10 Mg Tab 10 MG PO DAILY Discontinued Medications: Budesonide (Inhaler) (Pulmicort Flexhaler) 90 Mcg/ Inh 2 PUFFS INH BID PRN for Asthma Symptoms/SOB, INHALER Hydrochlorothiazide (Hydrochlorothiazide) 25 Mg Tab 25 MG PO DAILY Metoprolol Succinate (Metoprolol Succinate ER) 50 Mg Tabcr 50 MG PO QPM Referrals At Discharge Follow up Referrals: Physician Referral - Within 1 Week with Nas Johnston M.D. Discharge Exam Pt doing much better on day of discharge. SHe had no further syncopal episodes after admission and no events on telemetry. Her cough improved on po prednisone. She was placed on Tamiflu given her underlying medical issues and + Influenza A swab. She felt well enough to go home, not lightheaded, no CP. Review of Systems: Constitutional: No fever Eyes: No problem reported ENT: No problem reported Respiratory: + cough, No shortness of breath Cardiovascular: No chest pain, No edema Abdomen: No diarrhea, No nausea, No pain, No vomiting Musculoskeletal: No problem reported Genitourinary - Female: No problem reported Neurologic: No problem reported Psychiatric: No problem reported Endocrine: + problem reported (elevated glucose from steroids) Hematologic / Lymphatic: No problem reported Integumentary: No problem reported Physical Exam: General Appearance: WD/WN, no apparent distress Eyes: normal inspection, EOMI, sclerae normal Neck: trachea midline Respiratory/Chest: lungs clear, normal breath sounds, no respiratory distress, no accessory muscle use Cardiovascular: regular rate, rhythm, no edema, no gallop, no murmur, normal peripheral pulses Abdomen / GI: normal bowel sounds, non tender, soft Extremities: normal inspection, no calf tenderness, no pedal edema Neurologic/Psychiatric: alert, normal mood/affect, oriented x 3 Skin: normal color, warm/dry, no rash Hospital Course 56 y/o F w/Hx HTN, asthma, cough syncope. The pt developed a respiratory illness this past Monday and has been coughing frequently as a result. While it is not unusual for her to suffer syncopal episodes related to coughing, she has had a total of 7 syncopal episodes today - 2 which were witnessed in the ER. There have been no associated arrhythmias although it was noted that her pulse ox would dip into the mid 80s during an episode. She denies CP, denies N/V, SÁNCHEZ or dysuria - she denies significant SOB. She was recently also placed on a 2 week course of Lasix due to LE edema which she has been taking EOD and has 2 doses left. While taking lasix she was instructed to cut her B tabitha dose in half. Initial labs in the ER are notable for ARF in addition to a + rapid influenza A. 1) Cough syncope - Despite behaving differently during these episodes it is unlikely that the underlying etiology has changed - she may be exhibiting concomitant laryngospasm and the episodes may be exacerbated by her underlying illness and dehydration related to Lasix use. We will monitor her on telemetry and suppress her cough with Robitussin AC and Prednisone. Cardiology was consulted and recommended telemetry monitoring. She had an ECHO about 16 months ago that was normal. She had no events on telemetry here and was discharged to home wearing a Holter monitor x 24 hrs. 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 Discharge Instructions Please refer to the electronic Patient Visit Report (Discharge Instructions) for additional information. Follow-Up With PCP within 1 week Holter monitor for next 24 hrs as outpatient and then results to be forwarded to PCP Additional Copies To Nas Johnston M.D.
[2016-09-26] MEDS ORDERED: METO100T14 PO (09:22)
== END 2016-07-15 11:15 | disposition home or self-care (01) | DRG 682 ==
LOC: C.EDB 21:11 → C.EDINP 07-14 00:25 → C.MSICU 07-14 06:04
PROVIDERS: ADMIT Internal Medicine; ATTEND Family Medicine
DX: N17.9 Acute kidney failure, unspecified (principal); J96.00 Acute respiratory failure, unspecified whether with hypoxia or hypercapnia; E11.9 Type 2 diabetes mellitus without complications; I10 Essential (primary) hypertension; E78.00 Pure hypercholesterolemia, unspecified; E86.0 Dehydration; J11.1 Influenza due to unidentified influenza virus with other respiratory manifestations; R05 Cough; E03.9 Hypothyroidism, unspecified

== ENCOUNTER → 2016-07-29 | Outpatient (CLI) | payer BC ==
[~2016-07-29] MED LIST changes: +ADVIN25050 INH; -ATOR10TA88 PO; +BNC20 PO; -BNC40 PO; -CYAN10004 PO; +CYM60 PO; -ERGO1TAB12 PO; -FLUO40CA8 PO; -GLC/500 PO; +GLC500 PO; +GUAISYP4 PO; -HYDR25TA4 PO; -LEVO75TA36 PO; +LEVO75TA5 PO; +LSX20 PO; +METO100T14 PO; -METO50TA7 PO; +OLME1TAB11 PO; +OLME40TA33 PO; -PLMIN90 INH; +PRD20 PO; +PRVC/20 PO; +TMF75 PO; +TPRSR50 PO; +VNTHFA/IN INH
[2016-07-29 15:37] LABS: BASO % 0.5 %; BASO ABS # 0.05 K/uL (0-0.2); COMPLETE YES; EOS % 3.1 %; HEMATOCRIT 33.1 % (37-47); IG% 0.4 %; LYMPH ABS # 3.12 K/uL (1.2-3.4); MEAN CELL VOLUME 89.7 fL (80-100); MEAN CORPUSCULAR HGB CONC 32.3 g/dl (32-36); MEAN PLATELET VOLUME 9.5 fL (7.4-10.4); MONO % 6.7 %; NEUT % 60.3 %; PLATELET COUNT 293 K/uL (130-400); RED BLOOD COUNT 3.69 M/uL (4.2-5.4); WHITE BLOOD COUNT 10.75 K/uL (4.8-10.8)
[2016-07-29 15:59] LABS: ALT/SGPT 34 U/L (12-78); BLOOD UREA NITROGEN 7 mg/dl (7-18); BUN/CREATININE RATIO 7.8 (10-20); CALCIUM 8.8 mg/dl (8.5-10.1); CARBON DIOXIDE 25 mmol/L (21-32); CHLORIDE 106 mmol/L (98-107); CREATININE 0.93 mg/dl (0.60-1.20); GLUCOSE 125 mg/dl (70-99); POTASSIUM 3.6 mmol/L (3.5-5.1); SODIUM 142 mmol/L (136-145)
[2016-07-29 16:09] LABS: ALB/GLOB RATIO 0.9 (0.9-2); ALKALINE PHOSPHATASE 86 U/L (45-117); AST/SGOT 15 U/L (15-37)
== END | disposition home or self-care (01) ==
LOC: C.LAB1850 14:05
PROVIDERS: ATTEND Internal Medicine
DX: R60.9 Edema, unspecified (principal)

== ENCOUNTER → 2016-08-04 | Outpatient (CLI) | payer BC ==
--- NOTE | 2016-08-04 13:07 | DIAGNOSTIC IMAGING REPORT ---
TWO VIEW CHEST CLINICAL HISTORY: Dyspnea. FINDINGS: PA and lateral chest radiographs are compared to study dated 07/13/2016. The heart is enlarged and there is atherosclerotic calcification of the thoracic aorta. There is mild pulmonary vascular congestion. There are small pleural effusions with bibasilar atelectasis. There is no pneumothorax. The skeletal structures are osteopenic. The bony thorax appears intact. IMPRESSION: 1. Cardiomegaly with evidence of mild congestive failure. 2. Small pleural effusions are identified. Electronically signed by: Zachariah Vazquez M.D. 08/04/2016 1:05 PM Dictated Date/Time: 08/04/2016 12:58 PM
== END | disposition home or self-care (01) ==
LOC: C.RAD1850 12:38
PROVIDERS: ATTEND Internal Medicine
DX: R06.02 Shortness of breath (principal); I51.7 Cardiomegaly

== ENCOUNTER → 2016-08-10 | Outpatient (CLI) | payer BC ==
[2016-08-10 09:32] LABS: BASO % 0.5 %; BASO ABS # 0.05 K/uL (0-0.2); COMPLETE YES; EOS % 3.3 %; IG% 0.1 %; LYMPH % 25.8 %; LYMPH ABS # 2.48 K/uL (1.2-3.4); MEAN CELL VOLUME 89.3 fL (80-100); MEAN CORPUSCULAR HEMOGLOBIN 29.3 pg (25-34); MEAN CORPUSCULAR HGB CONC 32.8 g/dl (32-36); MEAN PLATELET VOLUME 9.5 fL (7.4-10.4); MONO % 7.5 %; NEUT % 62.8 %; PLATELET COUNT 376 K/uL (130-400); RED BLOOD COUNT 4.03 M/uL (4.2-5.4); WHITE BLOOD COUNT 9.61 K/uL (4.8-10.8)
[2016-08-10 09:42] LABS: BLOOD UREA NITROGEN 18 mg/dl (7-18); BUN/CREATININE RATIO 15.3 (10-20); CALCIUM 8.9 mg/dl (8.5-10.1); CARBON DIOXIDE 29 mmol/L (21-32); CHLORIDE 102 mmol/L (98-107); GLUCOSE 137 mg/dl (70-99); POTASSIUM 3.6 mmol/L (3.5-5.1); SODIUM 141 mmol/L (136-145)
== END | disposition home or self-care (01) ==
LOC: C.LAB1850 08:00
PROVIDERS: ATTEND Internal Medicine
DX: R60.9 Edema, unspecified (principal)

== ENCOUNTER → 2016-10-10 | Outpatient (CLI) | payer BC ==
[~2016-10-10] MED LIST changes: -PRD20 PO; -TMF75 PO
[2016-10-10 10:07] LABS: BLOOD UREA NITROGEN 15 mg/dl (7-18); BUN/CREATININE RATIO 13.6 (10-20); CALCIUM 8.6 mg/dl (8.5-10.1); CARBON DIOXIDE 31 mmol/L (21-32); CHLORIDE 104 mmol/L (98-107); GLUCOSE 152 mg/dl (70-99); POTASSIUM 3.6 mmol/L (3.5-5.1); SODIUM 142 mmol/L (136-145)
== END | disposition home or self-care (01) ==
LOC: C.LAB1850 07:32
PROVIDERS: ATTEND Physician Assistant
DX: I50.32 Chronic diastolic (congestive) heart failure (principal)

== ENCOUNTER → 2016-10-13 | Outpatient (CLI) | payer BC ==
[~2016-10-13] MED LIST changes: +GADAVIST IV PRN
--- NOTE | 2016-10-13 15:27 | DIAGNOSTIC IMAGING REPORT ---
MRI OF THE BRAIN WITHOUT AND WITH IV CONTRAST CLINICAL HISTORY: CHRONIC SÁNCHEZ headaches COMPARISON STUDY: 05/27/2010 TECHNIQUE: Utilizing a 1.5 Tiffany magnet and dedicated coil, multiplanar, multiecho imaging of the brain was performed pre and postcontrast administration. IV administration of 8.5 mL of Gadavist contrast was uneventful. FINDINGS: Several small foci of increased signal within the periventricular deep white matter regions. These are unchanged in the prior study. There are no new or interval findings. Postcontrast images are considered negative for an enhancing lesion. Diffusion-weighted images show no acute ischemic insult. IMPRESSION: Several nonspecific foci of increased signal throughout cerebellar as well as cerebral hemispheres. These are unchanged from the prior exam with no evidence for abnormal postcontrast enhancement. 3. Given the patient's age and scan stability, this is most consistent with that of a patient with a history of chronic headache. A demyelinating disorder is considered a secondary possibility. Electronically signed by: Jerad Francisco M.D. 10/13/2016 3:25 PM Dictated Date/Time: 10/13/2016 3:14 PM
== END | disposition home or self-care (01) ==
LOC: C.MRIBC 13:42
PROVIDERS: ATTEND Anesthesiology
DX: R51 Headache (principal)

== ENCOUNTER → 2016-11-02 | Outpatient (CLI) | payer BC ==
[~2016-11-02] MED LIST changes: -GADAVIST IV PRN
[2016-11-02 09:38] LABS: ALT/SGPT 34 U/L (12-78); BLOOD UREA NITROGEN 16 mg/dl (7-18); BUN/CREATININE RATIO 14.6 (10-20); CARBON DIOXIDE 29 mmol/L (21-32); CHLORIDE 105 mmol/L (98-107); CHOLESTEROL 167 mg/dl (0-200); GLUCOSE 128 mg/dl (70-99); POTASSIUM 3.8 mmol/L (3.5-5.1); SODIUM 141 mmol/L (136-145)
[2016-11-02 09:39] LABS: ESTIMATED AVERAGE GLUCOSE 154 mg/dl; HA1C FLAG Normal (Normal)
[2016-11-02 09:48] LABS: AST/SGOT 12 U/L (15-37); CHOLESTEROL/HDL RATIO 3.2; HDL CHOLESTEROL 52 mg/dl; LDL CHOLESTEROL CALCULATED 90 mg/dl; TRIGLYCERIDES 125 mg/dl (0-150); VERY LOW DENSITY LIPOPROT CALC 25 mg/dl
[2016-11-02 09:55] LABS: CALCIUM 8.8 mg/dl (8.5-10.1)
== END | disposition home or self-care (01) ==
LOC: C.LAB1850 07:55
PROVIDERS: ATTEND Internal Medicine
DX: E03.9 Hypothyroidism, unspecified (principal); E11.9 Type 2 diabetes mellitus without complications; E78.00 Pure hypercholesterolemia, unspecified

== ENCOUNTER 2016-12-02 15:08 | Inpatient (IN) | payer BC ==
[~2016-12-02] VITALS: Ht 157.5 cm; Wt 107.3 kg
[~2016-12-02 15:08] MED LIST changes: -BNC20 PO; -LSX20 PO; -OLME1TAB11 PO; -TPRSR50 PO; -VNTHFA/IN INH
[2016-12-02] MEDS ORDERED: SODIUM CHLORIDE 0.9% 1000ML 1,000 ML IV SCH (15:23)
--- NOTE | 2016-12-02 15:43 | EMERGENCY ROOM VISIT NOTE ---
History Report prepared by Shannan: Rae Cohen Under the Supervision of: Dr. Nas Yap D.O. First contact with patient: 15:19 Chief Complaint: HYPERTENSION Stated Complaint: HIGH BLOOD PRESSURE-TINGLING ARMS-BLURRED VISION History of Present Illness The patient is a 56 year old female who presents to the Emergency Room with complaints of persistent high blood pressure starting 3 hours ago. She was at her PCP for her 's appointment when she started feeling unwell. She asked the nurse to take her blood pressure and found that it was elevated. She was sent to the ED by her doctor. She complains of tingling in her hands and legs and blurry vision. She has a history of hypertension which has been well controlled for a while. 6 months ago she was started on metoprolol. She notes that her right foot seems to be dragging behind when she walks. She denies any nausea, vomiting, abdominal pain, chest pain, fever, chills, or SOB. She denies any recent falls. She denies any history of stroke or irregular heart rhythm. She has a family history of stroke in her grandmother in her late 60s. She denies any missed medications. She is currently on her period. Source of History: patient Onset: 3 hours ago Position: other (global) Quality: other (high blood pressure) Timing: other (persistent) Associated Symptoms: No SOB, No abdominal pain, No chest pain, No chills, No fevers, No nausea, No vomiting Note: Pt reports tingling in hands and legs, blurry vision, right foot dragging. Review of Systems See HPI for pertinent positives & negatives. A total of 10 systems reviewed and were otherwise negative. Past Medical & Surgical Medical Problems: (1) ARF (acute renal failure) (2) Hypertensive urgency (3) Syncope and collapse Family History Diabetes mellitus FHx: cancer FHx: gallbladder disease FHx: heart disease Hypertension Social History Smoking Status: Never Smoker Drug Use: none Marital Status: Housing Status: lives with family Occupation Status: employed Current/Historical Medications Scheduled Albuterol Hfa (Ventolin Hfa), 2-4 PUFFS INH Q6H Aspirin Enteric Coated (Ecotrin Or Generic), 81 MG PO DAILY Duloxetine HCl (Duloxetine HCl), 60 MG PO DAILY Fluticasone Prop/Salmeterol (Advair Diskus 250-50 Mcg/Dose), 1 PUFF INH BID Levothyroxine Sodium (Levothyroxine Sodium), 75 MCG PO DAILY Metformin HCl (Metformin HCl), 500 MG PO BID Metoprolol Tartrate (Lopressor) (Lopressor), 200 MG PO DAILY Olmesartan Medoxomil (Benicar), 20 MG PO DAILY Pravastatin Sod (Pravastatin Sodium), 20 MG PO DAILY Solifenacin (Vesicare), 10 MG PO DAILY Allergies Coded Allergies: No Known Allergies (Unverified , 12/02/16) Physical Exam Vital Signs Date Time Temp Pulse Resp B/P Pulse Ox O2 Delivery O2 Flow Rate FiO2 12/02/16 20:08 71 17 94 12/02/16 20:01 155/92 12/02/16 19:57 152/88 12/02/16 19:47 152/88 12/02/16 19:38 63 18 95 12/02/16 19:31 175/108 12/02/16 19:28 211/95 12/02/16 18:45 206/112 12/02/16 18:38 63 19 97 12/02/16 18:08 67 18 97 12/02/16 18:02 207/105 12/02/16 17:48 59 18 185/86 97 Room Air 12/02/16 17:38 62 15 97 12/02/16 17:31 185/86 12/02/16 17:19 171/94 12/02/16 17:08 63 15 96 12/02/16 17:01 178/87 12/02/16 16:54 173/85 12/02/16 16:46 60 12/02/16 16:24 65 18 191/94 97 Room Air 12/02/16 16:23 191/94 12/02/16 15:12 36.6 71 20 213/97 96 Room Air Physical Exam GENERAL: Patient is awake, alert, and in no acute distress. Patient is resting comfortably and showing no signs of anxiety EYES: The conjunctivae are clear. The pupils are round and reactive. EARS, NOSE, MOUTH AND THROAT: The nose is without any evidence of any deformity. Mucous membranes are moist tongue is midline NECK: The neck is nontender and supple. RESPIRATORY: Normal respiratory effort is noted there is no evidence of wheezing rhonchi or rales CARDIOVASCULAR: Regular rate and rhythm noted there no murmurs rubs or gallops normal S1 normal S2 GASTROINTESTINAL: The abdomen is soft. Bowel sounds are present in all quadrants. Abdomen is nontender MUSCULOSKELETAL/EXTREMITIES: There is no evidence of gross deformity full range of motion is noted in the hips and shoulders SKIN: There is no obvious evidence of any rash. There are no petechiae, pallor or cyanosis noted. NEUROLOGIC: Patient is awake alert and oriented x3 strength is symmetric patellar reflexes are 2+ bilaterally Medical Decision & Procedures ER Provider Diagnostic Interpretation: X-ray results as stated below per interpretation by me and the radiologist. Radiology results as stated below per my review and radiologist interpretation: CHEST ONE VIEW PORTABLE HISTORY: Stroke COMPARISON: Chest 08/04/2016 FINDINGS: The heart remains mildly enlarged. Interstitial thickening has improved. No evidence for pulmonary edema. No focal lung consolidations to suggest pneumonia. No pleural effusions. No pneumothorax. IMPRESSION: No acute process within the chest. Stable mild cardiomegaly. Electronically signed by: Wesley Vincent M.D. 12/02/2016 4:09 PM Dictated Date/Time: 12/02/2016 4:[address] NON[address]AST CT DOSE: 614.27 mGy.cm HISTORY: Blurred vision. Stroke TECHNIQUE: Multiaxial CT images of the head were performed without the use of intravenous contrast. Automated exposure control was utilized for this study. Comparison: None. Findings: The paranasal sinuses and mastoid air cells are clear. The calvarium and skull base are intact. The ventricles and sulci are within normal limits. There is no mass, hematoma, midline shift, or acute infarct. Impression: No acute intracranial abnormality. Electronically signed by: Wesley Vincent M.D. 12/02/2016 4:16 PM Dictated Date/Time: 12/02/2016 4:09 PM Laboratory Results 12/02/16 15:35 Red Blood Count 4.90, Mean Corpuscular Volume 87.6, Mean Corpuscular Hemoglobin 29.2, Mean Corpuscular Hemoglobin Concent 33.3, Mean Platelet Volume 8.9, Neutrophils (%) (Auto) 53.1, Lymphocytes (%) (Auto) 36.8, Monocytes (%) (Auto) 6.6, Eosinophils (%) (Auto) 2.8, Basophils (%) (Auto) 0.5, Neutrophils # (Auto) 6.54, Lymphocytes # (Auto) 4.55, Monocytes # (Auto) 0.82, Eosinophils # (Auto) 0.35, Basophils # (Auto) 0.06 12/02/16 15:35 Test 12/02/16 13:25 12/02/16 15:35 Urine Color YELLOW Urine Appearance CLEAR (CLEAR) Urine pH 6.5 (4.5-7.5) Urine Specific [place] 1.011 (1.000-1.030) Urine Protein NEG (NEG) Urine Glucose (UA) NEG (NEG) Urine Ketones NEG (NEG) Urine Occult Blood 2+ (NEG) Urine Nitrite NEG (NEG) Urine Bilirubin NEG (NEG) Urine Urobilinogen NEG (NEG) Urine Leukocyte Esterase TRACE (NEG) Urine WBC (Auto) 1-5 /hpf (0-5) Urine RBC (Auto) 5-10 /hpf (0-4) Urine Hyaline Casts (Auto) 1-5 /lpf (0-5) Urine Epithelial Cells (Auto) >30 /lpf (0-5) Urine Bacteria (Auto) NEG (NEG) White Blood Count 12.35 K/uL (4.8-10.8) Red Blood Count 4.90 M/uL (4.2-5.4) Hemoglobin 14.3 g/dL (12.0-16.0) Hematocrit 42.9 % (37-47) Mean Corpuscular Volume 87.6 fL (80-100) Mean Corpuscular Hemoglobin 29.2 pg (25-34) Mean Corpuscular Hemoglobin Concent 33.3 g/dl (32-36) Platelet Count 356 K/uL (130-400) Mean Platelet Volume 8.9 fL (7.4-10.4) Neutrophils (%) (Auto) 53.1 % Lymphocytes (%) (Auto) 36.8 % Monocytes (%) (Auto) 6.6 % Eosinophils (%) (Auto) 2.8 % Basophils (%) (Auto) 0.5 % Neutrophils # (Auto) 6.54 K/uL (1.4-6.5) Lymphocytes # (Auto) 4.55 K/uL (1.2-3.4) Monocytes # (Auto) 0.82 K/uL (0.11-0.59) Eosinophils # (Auto) 0.35 K/uL (0-0.5) Basophils # (Auto) 0.06 K/uL (0-0.2) RDW Standard Deviation 45.3 fL (36.4-46.3) RDW Coefficient of Variation 14.0 % (11.5-14.5) Immature Granulocyte % (Auto) 0.2 % Immature Granulocyte # (Auto) 0.03 K/uL (0.00-0.02) Prothrombin Time 10.6 SECONDS (9.0-12.0) Prothromb Time International Ratio 1.0 (0.9-1.1) Activated Partial Thromboplast Time 28.2 SECONDS (21.0-31.0) Partial Thromboplastin Ratio 1.1 Anion Gap 7.0 mmol/L (3-11) Est Creatinine Clear Calc Drug Dose 76.8 ml/min Estimated GFR () 77.7 Estimated GFR (Non- 67.0 BUN/Creatinine Ratio 9.8 (10-20) Calcium Level 9.0 mg/dl (8.5-10.1) Magnesium Level 1.9 mg/dl (1.8-2.4) Total Bilirubin 0.8 mg/dl (0.2-1) Direct Bilirubin 0.1 mg/dl (0-0.2) Aspartate Amino Transf (AST/SGOT) 11 U/L (15-37) Alanine Aminotransferase (ALT/SGPT) 28 U/L (12-78) Alkaline Phosphatase 101 U/L (45-117) Total Creatine Kinase 42 U/L (26-192) Creatine Kinase MB 0.6 ng/ml (0.5-3.6) Creatine Kinase MB Ratio 1.4 (0-3.0) Troponin I < 0.015 ng/ml (0-0.045) Total Protein 7.1 gm/dl (6.4-8.2) Albumin 3.5 gm/dl (3.4-5.0) Human Chorionic Gonadotropin, Qual NEG (NEG) Laboratory results per my review. Medications Administered Medications (Trade) Dose Ordered Sig/Susanne Route Start Time Stop Time Status Last Admin Dose Admin Sodium Chloride (Nss 1000ml) 1,000 ml @ 50 mls/hr Q20H IV 12/02/16 15:23 12/02/16 22:46 DC 12/02/16 15:23 50 MLS/HR Clonidine HCl (Catapres Tab) 0.2 mg NOW ONCE PO 12/02/16 19:00 12/02/16 19:01 DC 12/02/16 18:57 0.2 MG ECG Indication: other (hypertension) Rate (beats per minute): 71 Rhythm: sinus rhythm Findings: no ectopy, other (no acute ST segment abnormality) Comparison ECG Date: 13-Jul-2016 Change: no significant change ED Course 1521: The patient was evaluated in room C3. A complete history and physical examination were performed. 1523: NSS 1000 ml @ 50 mls/hr IV. 1899: Clonidine HCl 0.2 mg PO. 174: Upon reevaluation, the patient is resting comfortably. I discussed results and treatment plan with her. She verbalizes agreement and understanding. The patient will be evaluated for further management and care. 1918: I discussed the patient's case with Dr. Fuentes, [facility] - internal medicine. The patient will be evaluated for further management. Medical Decision Prior records/ancillary studies reviewed and summarized above. Nursing notes reviewed. Additional history is obtained from the patient's family members.. Differential diagnosis: Etiologies such as metabolic, infection, hypo/hyperglycemia, electrolyte abnormalities, cardiac sources, intracerebral event, toxicologic, neurologic, as well as others were entertained. The patient is a 56-year-old female who presented to the emergency department for an evaluation of elevated blood pressure and neurologic complaints. The patient complained of dizziness as well as an elevated blood pressure was noted by her primary care physician. The patient states it when she initially had the symptoms which were rather acute in onset she noticed that she was dragging her right foot. Her significant other states that he did note slight asymmetry in her gait. I discussed the patient's laboratory and radiographic studies with her. She did not meet criteria for TPA because her motor symptoms had completely resolved upon arrival to the emergency department. The patient was treated with IV fluids in the emergency department. She was also treated with antihypertensives in the emergency department. On subsequent reevaluation she was feeling much better. I discussed the patient's laboratory and radiographic studies with her. I also discussed her case with the on-call [facility] hospitalist group. They have agreed to evaluate the patient in the emergency department for further management and disposition. Consults Time Called: 1899 Consulting Physician: Dr. Fuentes, [facility] - internal medicine Returned Call: 1918 I discussed the patient's case with him. The patient will be evaluated for further management. Impression Primary Impression: TIA (transient ischemic attack) Additional Impressions: Weakness of right lower extremity Hypertension Scribe Attestation The scribe's documentation has been prepared under my direction and personally reviewed by me in its entirety. I confirm that the note above accurately reflects all work, treatment, procedures, and medical decision making performed by me. Departure Information Dispostion Being Evaluated By Hospitalist Referrals Pro,Nas Chacon M.D. (PCP) Patient Instructions My [facility] Problem Qualifiers Primary Impression: TIA (transient ischemic attack) Transient cerebral ischemia type: unspecified Qualified Codes: G45.9 - Transient cerebral ischemic attack, unspecified Additional Impressions:
[2016-12-02 15:49] LABS: BASO % 0.5 %; BASO ABS # 0.06 K/uL (0-0.2); COMPLETE YES; EOS % 2.8 %; HEMATOCRIT 42.9 % (37-47); IG% 0.2 %; LYMPH % 36.8 %; LYMPH ABS # 4.55 K/uL (1.2-3.4); MEAN CELL VOLUME 87.6 fL (80-100); MEAN CORPUSCULAR HEMOGLOBIN 29.2 pg (25-34); MEAN CORPUSCULAR HGB CONC 33.3 g/dl (32-36); MEAN PLATELET VOLUME 8.9 fL (7.4-10.4); MONO % 6.6 %; NEUT % 53.1 %; PLATELET COUNT 356 K/uL (130-400); WHITE BLOOD COUNT 12.35 K/uL (4.8-10.8)
[2016-12-02 15:55] LABS: URINE APPEARANCE CLEAR (CLEAR); URINE BILIRUBIN NEG (NEG); URINE COLOR YELLOW; URINE EPITHELIAL CELL AUTO >30 /lpf (0-5); URINE NITRITE NEG (NEG); URINE PH 6.5 (4.5-7.5); URINE SPECIFIC GRAVITY 1.011 (1.000-1.030); UROBILINOGEN NEG (NEG); ZZUR CULT IF INDIC CLEAN CATCH NO
[2016-12-02 16:05] LABS: ALT/SGPT 28 U/L (12-78); AST/SGOT 11 U/L (15-37); BLOOD UREA NITROGEN 9 mg/dl (7-18); BUN/CREATININE RATIO 9.8 (10-20); CARBON DIOXIDE 32 mmol/L (21-32); CHLORIDE 103 mmol/L (98-107); CREATININE 0.96 mg/dl (0.60-1.20); GLUCOSE 91 mg/dl (70-99); MAGNESIUM 1.9 mg/dl (1.8-2.4); POTASSIUM 3.5 mmol/L (3.5-5.1); SODIUM 142 mmol/L (136-145)
[2016-12-02 16:10] LABS: ALKALINE PHOSPHATASE 101 U/L (45-117); CKMB/CK RATIO 1.4 (0-3.0)
--- NOTE | 2016-12-02 16:10 | DIAGNOSTIC IMAGING REPORT ---
CHEST ONE VIEW PORTABLE HISTORY: Stroke COMPARISON: Chest 08/04/2016 FINDINGS: The heart remains mildly enlarged. Interstitial thickening has improved. No evidence for pulmonary edema. No focal lung consolidations to suggest pneumonia. No pleural effusions. No pneumothorax. IMPRESSION: No acute process within the chest. Stable mild cardiomegaly. Electronically signed by: Wesley Vincent M.D. 12/02/2016 4:09 PM Dictated Date/Time: 12/02/2016 4:07 PM
[2016-12-02 16:15] LABS: MANUAL MICROSCOPIC REQUIRED? NO; REVIEW REQ? NO
[2016-12-02 16:15] LABS: PARTIAL THROMBOPLASTIN RATIO 1.1; PROTHROMBIN TIME (PATIENT) 10.6 SECONDS (9.0-12.0)
--- NOTE | 2016-12-02 16:17 | DIAGNOSTIC IMAGING REPORT ---
HEAD CT NONCONTRAST CT DOSE: 614.27 mGy.cm HISTORY: Blurred vision. Stroke TECHNIQUE: Multiaxial CT images of the head were performed without the use of intravenous contrast. Automated exposure control was utilized for this study. Comparison: None. Findings: The paranasal sinuses and mastoid air cells are clear. The calvarium and skull base are intact. The ventricles and sulci are within normal limits. There is no mass, hematoma, midline shift, or acute infarct. Impression: No acute intracranial abnormality. Electronically signed by: Wesley Vincent M.D. 12/02/2016 4:16 PM Dictated Date/Time: 12/02/2016 4:09 PM
[2016-12-02 16:34] LABS: PREG INTERNAL NEGATIVE QC NEG CLEAR BACKGROUND; PREG INTERNAL POSITIVE QC POS CONTROL LINE
[2016-12-02] MEDS ORDERED: OLME1TAB11 PO (17:02)
[2016-12-02] MEDS ORDERED: VNTHFA/IN INH (17:02)
[2016-12-02] MEDS ORDERED: CLONIDINE HCL 0.1 MG TAB PO ONE (19:00)
--- NOTE | 2016-12-02 20:11 | History and Physical ---
History & Physical Date & Time of Service: December 02, 2016 at 20:10 Chief Complaint: High Blood Pressure-Tingling Arms-Blurred Vision Primary Care Physician: Nas Johnston M.D. History of Present Illness Source: patient 56 y/o F w/Hx HTN, asthma, DM, cough syncope. Pt developed B/L facial numbness , numbness in her upper and lower extremities earlier in the day. She also describes a sensation of her R foot dragging for a brief period this AM. She had escorted her to his MD in the afternoon and had her BP checked while she was there. He SBP registered at over 210 and she was instructed to attend the hospital. He pressure was confirmed at over 200 on arrival although she did respond to a dose of Clonidine. She denies CP, denies N/V, SÁNCHEZ or dysuria - she denies SOB. She is asymptomatic at the time of admission. Although her symptoms were mostly B/L and therefore more likely related to HTN urgency then to a TIA, she did describe a brief episode of what may have been RLE weakness. Past Medical/Surgical History 1) HTN 2) Cough syncope 3) Asthma 4) Hypothyroidism 5) DM 2 6) HPL Family History Diabetes mellitus FHx: cancer FHx: gallbladder disease FHx: heart disease Hypertension Social History Smoking Status: Never Smoker Alcohol Use: none Drug Use: none Marital Status: Occupational Status: employed Multi-Drug Resistant Organisms History of MDRO: No Allergies Coded Allergies: No Known Allergies (Unverified , 12/02/16) Home Medications Scheduled Albuterol Hfa (Ventolin Hfa), 2-4 PUFFS INH Q6H Aspirin Enteric Coated (Ecotrin Or Generic), 81 MG PO DAILY Duloxetine HCl (Duloxetine HCl), 60 MG PO DAILY Fluticasone Prop/Salmeterol (Advair Diskus 250-50 Mcg/Dose), 1 PUFF INH BID Levothyroxine Sodium (Levothyroxine Sodium), 75 MCG PO DAILY Metformin HCl (Metformin HCl), 500 MG PO BID Metoprolol Tartrate (Lopressor) (Lopressor), 200 MG PO DAILY Olmesartan Medoxomil (Benicar), 20 MG PO DAILY Pravastatin Sod (Pravastatin Sodium), 20 MG PO DAILY Solifenacin (Vesicare), 10 MG PO DAILY Review of Systems Constitutional: No chills, No fever, No sweats Eyes: No eye pain, No worsening of vision ENT: No hearing loss, No nasal symptoms, No unusual epistaxis Respiratory: No cough, No sputum, No wheezing Cardiovascular: No PND, No chest pain, No orthopnea Abdomen: No nausea, No pain, No vomiting Musculoskeletal: No joint pain, No muscle pain Genitourinary - Female: No dysuria, No urinary frequency, No urinary urgency Neurologic: + numbness/tingling, + problem reported (B/L numb feeling - possible RLE weakness - resolved), + weakness, No memory loss, No paralysis Psychiatric: No anhedonism, No depression symptoms Endocrine: No fatigue Hematologic / Lymphatic: No abnormal bleeding/bruising Integumentary: No rash Allergic / Immunologic: No environmental allergies Physical Exam Vital Signs Date Time Temp Pulse Resp B/P Pulse Ox O2 Delivery O2 Flow Rate FiO2 12/02/16 17:48 59 18 185/86 97 Room Air 12/02/16 16:46 60 12/02/16 16:24 65 18 191/94 97 Room Air 12/02/16 15:12 36.6 71 20 213/97 96 Room Air General Appearance: WD/WN, no apparent distress Head: normocephalic, atraumatic Eyes: normal inspection, PERRL, EOMI ENT: normal ENT inspection, hearing grossly normal, TMs normal, pharynx normal Neck: supple, no JVD Respiratory/Chest: chest non-tender, lungs clear, normal breath sounds, no respiratory distress, no accessory muscle use Cardiovascular: regular rate, rhythm, no edema, no gallop, no JVD, no murmur, normal peripheral pulses Abdomen/GI: normal bowel sounds, non tender, soft Back: normal inspection, no CVA tenderness, no muscle spasm, normal range of motion Extremities/Musculoskelatal: normal inspection, no calf tenderness, normal capillary refill, no pedal edema, normal range of motion 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/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: 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, no motor/sensory deficits, alert, normal mood/affect, normal reflexes, oriented x 3 Skin: normal color, warm/dry, no rash Diagnostics Laboratory Results Results Past 24 Hours Test 12/02/16 13:25 12/02/16 15:35 Range/Units Urine Color YELLOW Urine Appearance CLEAR CLEAR Urine pH 6.5 4.5-7.5 Urine Specific [place] 1.011 1.000-1.030 Urine Protein NEG NEG Urine Glucose (UA) NEG NEG Urine Ketones NEG NEG Urine Occult Blood 2+ NEG Urine Nitrite NEG NEG Urine Bilirubin NEG NEG Urine Urobilinogen NEG NEG Urine Leukocyte Esterase TRACE NEG Urine WBC (Auto) 1-5 0-5 /hpf Urine RBC (Auto) 5-10 0-4 /hpf Urine Hyaline Casts (Auto) 1-5 0-5 /lpf Urine Epithelial Cells (Auto) >30 0-5 /lpf Urine Bacteria (Auto) NEG NEG White Blood Count 12.35 4.8-10.8 K/uL Red Blood Count 4.90 4.2-5.4 M/uL Hemoglobin 14.3 12.0-16.0 g/dL Hematocrit 42.9 37-47 % Mean Corpuscular Volume 87.6 80-100 fL Mean Corpuscular Hemoglobin 29.2 25-34 pg Mean Corpuscular Hemoglobin Concent 33.3 32-36 g/dl Platelet Count 356 130-400 K/uL Mean Platelet Volume 8.9 7.4-10.4 fL Neutrophils (%) (Auto) 53.1 % Lymphocytes (%) (Auto) 36.8 % Monocytes (%) (Auto) 6.6 % Eosinophils (%) (Auto) 2.8 % Basophils (%) (Auto) 0.5 % Neutrophils # (Auto) 6.54 1.4-6.5 K/uL Lymphocytes # (Auto) 4.55 1.2-3.4 K/uL Monocytes # (Auto) 0.82 0.11-0.59 K/uL Eosinophils # (Auto) 0.35 0-0.5 K/uL Basophils # (Auto) 0.06 0-0.2 K/uL RDW Standard Deviation 45.3 36.4-46.3 fL RDW Coefficient of Variation 14.0 11.5-14.5 % Immature Granulocyte % (Auto) 0.2 % Immature Granulocyte # (Auto) 0.03 0.00-0.02 K/uL Prothrombin Time 10.6 9.0-12.0 SECONDS Prothromb Time International Ratio 1.0 0.9-1.1 Activated Partial Thromboplast Time 28.2 21.0-31.0 SECONDS Partial Thromboplastin Ratio 1.1 Sodium Level 142 136-145 mmol/L Potassium Level 3.5 3.5-5.1 mmol/L Chloride Level 103 98-107 mmol/L Carbon Dioxide Level 32 21-32 mmol/L Anion Gap 7.0 3-11 mmol/L Blood Urea Nitrogen 9 7-18 mg/dl Creatinine 0.96 0.60-1.20 mg/dl Est Creatinine Clear Calc Drug Dose 76.8 ml/min Estimated GFR () 77.7 Estimated GFR (Non- 67.0 BUN/Creatinine Ratio 9.8 10-20 Random Glucose 91 70-99 mg/dl Calcium Level 9.0 8.5-10.1 mg/dl Magnesium Level 1.9 1.8-2.4 mg/dl Total Bilirubin 0.8 0.2-1 mg/dl Direct Bilirubin 0.1 0-0.2 mg/dl Aspartate Amino Transf (AST/SGOT) 11 15-37 U/L Alanine Aminotransferase (ALT/SGPT) 28 12-78 U/L Alkaline Phosphatase 101 45-117 U/L Total Creatine Kinase 42 26-192 U/L Creatine Kinase MB 0.6 0.5-3.6 ng/ml Creatine Kinase MB Ratio 1.4 0-3.0 Troponin I < 0.015 0-0.045 ng/ml Total Protein 7.1 6.4-8.2 gm/dl Albumin 3.5 3.4-5.0 gm/dl Human Chorionic Gonadotropin, Qual NEG NEG Diagnostic Radiology CT head: The paranasal sinuses and mastoid air cells are clear. The calvarium and skull base are intact. The ventricles and sulci are within normal limits. There is no mass, hematoma, midline shift, or acute infarct. EKG Sinus - ant Q wvs - no acute changes Impression Assessment and Plan 56 y/o F w/Hx HTN, asthma, DM, cough syncope. Pt developed B/L facial numbness , numbness in her upper and lower extremities earlier in the day. She also describes a sensation of her R foot dragging for a brief period this AM. She had escorted her to his MD in the afternoon and had her BP checked while she was there. He SBP registered at over 210 and she was instructed to attend the hospital. He pressure was confirmed at over 200 on arrival although she did respond to a dose of Clonidine. She denies CP, denies N/V, SÁNCHEZ or dysuria - she denies SOB. She is asymptomatic at the time of admission. Although her symptoms were mostly B/L and therefore more likely related to HTN urgency then to a TIA, she did describe a brief episode of what may have been RLE weakness. 1) HTN urgency - Pt will be monitored on telemetry - she is on an ARB and a high dose of Metoprolol due to resting tachycardia - she states she is also on a low dose of Lasix at 10mg. She responded to a single dose of 0.3 clonidine in the ER. We will provide 20mg Lasix as well. We will cont her B tabitha and ARB. 2) Numbness - possible RLE weakness - placed on telemetry with Neuro-checks - no deficits on admission - will increase ASA and Statin dose and obtain an AM MRI. 3) DM - on Metformin only which is held - we will start a SS if needed - Glu 91 on admission. 4) HPL - cont Statin 5) Asthma - mod - cont inhalers as prescribed. Full code - heparin prophylaxis Total time for this admit including review of labs, meds, EKG, CT, records - discussion with pt and ER attending - 37 min Level of Care Telemetry Resuscitation Status FULL RESUSCITATION VTE Prophylaxis Risk Level: Low Given or contraindicated: Unfractionated heparin SQ
[2016-12-02] MEDS ORDERED: ONDANSETRON INJ 2 MG/ML 2 ML VIAL IV PRN (20:15)
[2016-12-02] MEDS ORDERED: ALBUTEROL HFA 8 GM INHALER INH PRN (20:15)
[2016-12-02] MEDS ORDERED: MAGNESIUM HYDROXIDE SUSP 30 ML UDC PO PRN (20:15)
[2016-12-02] MEDS ORDERED: ALUMINUM/MAGNESIUM/SIMETH (MAALOX MAX) 30 ML UDC PO PRN (20:15)
[2016-12-02] MEDS ORDERED: HYDROCHLOROTHIAZIDE 25 MG TAB PO SCH (20:15)
[2016-12-02] MEDS ORDERED: MoRPHine SULFATE 2 MG/ML CARP IV PRN (20:15)
[2016-12-02] MEDS ORDERED: POLYETHYLENE (MIRALAX) 17 GM PACK PO PRN (20:15)
[2016-12-02] MEDS ORDERED: POTASSIUM CHLORIDE 20 MEQ TABCR PO SCH (20:30)
[2016-12-02] MEDS ORDERED: POTASSIUM CHLORIDE 10 MEQ TABCR ONE (20:56)
[2016-12-02 21:21] VITALS: BP 163/86; PULSE 69; TEMP 36.6; O2SAT 96; Ht 157.5 cm; Wt 107.3 kg
[2016-12-02 23:51] VITALS: BP 154/88; PULSE 65; TEMP 36.8; O2SAT 96
[2016-12-03] MEDS: HEPARIN SOD 5000 UNIT/0.5 ML CARP SQ SCH ×4 (00:25→21:43)
[2016-12-03] MEDS: ASPIRIN/ALUM/MAGNES/CAL CARB 325 MG TAB PO SCH ×2 (00:26→21:40)
[2016-12-03] MEDS: ACETAMINOPHEN 325 MG TAB PO PRN ×2 (00:26→19:58)
[2016-12-03] MEDS: FUROSEMIDE 20 MG TAB PO SCH ×2 (00:27→09:26)
[2016-12-03] MEDS: ATORVASTATIN 40 MG TAB PO SCH ×2 (00:27→21:40)
[2016-12-03] MEDS: FLUTICASONE/SALMETEROL 250/50 (ADVAIR) 14 PUFF/1 INHALER INH SCH ×3 (00:28→21:40)
[2016-12-03 04:00] VITALS: BP 145/87; PULSE 64; TEMP 36.7; O2SAT 96
[2016-12-03] MEDS: LEVOTHYROXINE 75 MCG TAB PO SCH (05:54)
[2016-12-03 07:13] LABS: HEMATOCRIT 38.8 % (37-47); MEAN CELL VOLUME 88.2 fL (80-100); MEAN CORPUSCULAR HEMOGLOBIN 29.1 pg (25-34); MEAN PLATELET VOLUME 8.9 fL (7.4-10.4); PLATELET COUNT 306 K/uL (130-400); WHITE BLOOD COUNT 9.72 K/uL (4.8-10.8)
[2016-12-03 07:44] LABS: BUN/CREATININE RATIO 10.7 (10-20); CALCIUM 8.5 mg/dl (8.5-10.1); CREATININE 1.1 mg/dl (0.60-1.20); POTASSIUM 3.8 mmol/L (3.5-5.1)
[2016-12-03] MEDS ORDERED: PNEUMOCOCCAL ADMINISTRATION CHARGE ONE (08:00)
[2016-12-03] MEDS ORDERED: PNEUMOCOCCAL POLYSACCHARIDES 25 MCG/0.5 ML VIAL/SYR IM. ONE (08:00)
[2016-12-03 08:03] VITALS: BP 131/80; PULSE 67; TEMP 36.6; O2SAT 94
[2016-12-03] MEDS ORDERED: PHARMACIST DISCHARGE MED REC CONSULT PRN (08:15)
[2016-12-03 08:59] LABS: CHOLESTEROL 188 mg/dl (0-200); CHOLESTEROL/HDL RATIO 3.9; HDL CHOLESTEROL 48 mg/dl; LDL CHOLESTEROL CALCULATED 102 mg/dl; TRIGLYCERIDES 192 mg/dl (0-150); VERY LOW DENSITY LIPOPROT CALC 38 mg/dl
[2016-12-03] MEDS ORDERED: METOPROLOL TARTRATE 100 MG TAB PO SCH (09:00)
[2016-12-03] MEDS ORDERED: ASPIRIN 81 MG ECTAB PO SCH (09:00)
[2016-12-03] MEDS ORDERED: PRAVASTATIN SOD 20 MG TAB PO SCH (09:00)
[2016-12-03] MEDS ORDERED: OLMESARTAN MEDOXOMIL 20 MG TAB PO SCH (09:00)
[2016-12-03] MEDS: DULOXETINE HCL 60 MG CAP PO SCH (09:26)
[2016-12-03 10:41] LABS: ESTIMATED AVERAGE GLUCOSE 157 mg/dl; HA1C FLAG Normal (Normal)
[2016-12-03] MEDS: METOPROLOL SUCC 50MG EXT REL TAB PO SCH (11:23)
[2016-12-03 11:30] VITALS: BP 137/77; PULSE 67; TEMP 36.9; O2SAT 95
--- NOTE | 2016-12-03 12:33 | Neurology Consultation ---
Neurology Consultation Date of Consultation: December 03, 2016. Attending Physician: Jennifer Sullivan MD Primary Care Physician: Nas Johnston M.D. Reason for Consultation: "TIA, right lower extremity weakness " History of Present Illness The patient is a 56-year-old female who was sent to the emergency department yesterday for further evaluation of suspected hypertensive urgency during a doctor's appointment for her . She apparently had complained of not feeling well for the past few days and had also noted some tingling in her hands and legs as well as some associated blurry vision. The patient had also remarked that her right foot seems to be dragging while walking. Past medical history is notable for hypertension, diabetes mellitus, and asthma. A CT of the head is unremarkable without evidence of hemorrhage or acute process. Images reviewed. The electrocardiogram reveals a sinus rhythm with first-degree AV block. Currently, the patient reports that her symptoms have resolved. She indicates that the above episode of right lower extremity weakness persisted for only about an hour or so yesterday she noticed it while she was walking to her car. She no longer complains of tingling or blurry vision. She does admit to having episodic headaches recently potentially related to her hypertension which has been an ongoing issue over the past few months. Past Medical/Surgical History Medical Problems: (1) Acute kidney injury Status: Acute (2) Cough syncope Status: Acute (3) Dental infection Status: Acute (4) Facial cellulitis Status: Acute (5) Hypertension Status: Acute (6) Influenza A Status: Acute (7) Post op infection Status: Acute (8) TIA (transient ischemic attack) Status: Acute (9) Weakness of right lower extremity Status: Acute Family History Family history notable for hypertension Social History Smoking Status: Never smoker Alcohol Use: none Drug Use: none Marital Status: Housing Status: lives with family Occupation Status: employed Allergies Coded Allergies: No Known Allergies (Unverified , 12/02/16) Current Inpatient Medications Current Inpatient Medications Medications (Trade) Dose Ordered Sig/Susanne Route Start Time Stop Time Status Last Admin Dose Admin Heparin Sodium (Porcine) (Heparin Sq 5000 Unit/0.5ml) 5,000 unit Q8H SQ 12/02/16 22:00 01/01/17 21:59 12/03/16 05:55 5,000 UNIT Acetaminophen (Tylenol Tab) 650 mg Q4H PRN PO 12/02/16 20:15 01/01/17 20:14 12/03/16 00:26 650 MG Al Hydrox/Mg Hydrox/Simethicone (Maalox Max Susp) 15 ml Q4H PRN PO 12/02/16 20:15 01/01/17 20:14 Magnesium Hydroxide (Milk Of Magnesia Susp) 30 ml Q12H PRN PO 12/02/16 20:15 01/01/17 20:14 Ondansetron HCl (Zofran Inj) 4 mg Q6H PRN IV 12/02/16 20:15 01/01/17 20:14 Morphine Sulfate (MoRPHine SULFATE INJ) 2 mg Q30M PRN IV 12/02/16 20:15 12/16/16 20:14 Polyethylene (Miralax Powder Packet) 17 gm DAILY PRN PO 12/02/16 20:15 01/01/17 20:14 Albuterol (Ventolin Hfa Inhaler) 2 puffs Q6H PRN INH 12/02/16 20:15 01/01/17 20:14 Duloxetine HCl (Cymbalta Cap) 60 mg DAILY PO 12/03/16 09:00 01/02/17 08:59 Salmeterol Xinafoate/ Fluticasone (Advair Diskus 250/50 Inh) 1 puff BID INH 12/02/16 21:00 01/01/17 20:59 12/03/16 00:28 1 PUFF Levothyroxine Sodium (Synthroid Tab) 75 mcg DAILYBB PO 12/03/16 06:00 01/02/17 05:59 12/03/16 05:54 75 MCG Olmesartan (Benicar Tab) 20 mg DAILY PO 12/03/16 09:00 01/02/17 08:59 Miscellaneous Information (Order Awaiting Action) 1 ea QS N/A 12/03/16 08:00 01/02/17 07:59 Atorvastatin Calcium (Lipitor Tab) 40 mg HS PO 12/02/16 21:00 01/01/17 20:59 12/03/16 00:27 40 MG Aspirin/Aluminum/ Magnesium/Ca Carb (Ascriptin Tab) 325 mg HS PO 12/02/16 21:00 01/01/17 20:59 12/03/16 00:26 325 MG Furosemide (Lasix Tab) 20 mg QAM PO 12/02/16 21:00 01/01/17 20:59 12/03/16 00:27 20 MG Miscellaneous Information (Pharmacist Discharge Med Rec Consult) 1 ea UD PRN N/A 12/03/16 08:15 01/02/17 08:14 UNV Metoprolol Succinate (Toprol Xl Tab) 200 mg QAM PO 12/03/16 09:00 01/02/17 08:59 UNV Review of Systems The patient denies fever, chills, vision loss, diplopia, hearing loss, vertigo, chest pain, palpitations, shortness of breath, coughing, wheezing, abdominal pain, diarrhea, dysuria, incontinence, muscle pain, joint pain, arthralgia, myalgia, rash, swollen glands, depression or anxiety. A full 10 point review of systems was obtained from this patient with pertinent positives and negatives described in the history of present illness and otherwise listed above. Physical Exam Vital Signs (Past 24 Hrs): Date Time Temp Pulse Resp B/P Pulse Ox O2 Delivery O2 Flow Rate FiO2 12/03/16 07:30 Room Air 12/03/16 04:00 36.7 64 18 145/87 96 Room Air 12/03/16 04:00 Room Air 12/03/16 00:00 Room Air 12/02/16 23:51 36.8 65 18 154/88 96 Room Air 12/02/16 21:21 36.6 69 18 163/86 96 Room Air 12/02/16 20:56 66 18 147/85 95 Room Air 12/02/16 20:31 140/79 12/02/16 20:08 71 17 94 12/02/16 20:01 155/92 12/02/16 19:57 152/88 12/02/16 19:47 152/88 12/02/16 19:38 63 18 95 12/02/16 19:31 175/108 12/02/16 19:28 211/95 12/02/16 18:45 206/112 12/02/16 18:38 63 19 97 12/02/16 18:08 67 18 97 12/02/16 18:02 207/105 12/02/16 17:48 59 18 185/86 97 Room Air 5/26/17 17:38 62 15 97 12/02/16 17:31 185/86 12/02/16 17:19 171/94 12/02/16 17:08 63 15 96 12/02/16 17:01 178/87 12/02/16 16:54 173/85 12/02/16 16:46 60 12/02/16 16:24 65 18 191/94 97 Room Air 12/02/16 16:23 191/94 12/02/16 15:12 36.6 71 20 213/97 96 Room Air The patient is a well-developed well-nourished middle-aged female, no acute distress. She is alert and oriented to person place and time. Attention and concentration normal. Recent and remote memory intact. She is able to name objects, repeats phrases, and reads text without difficulty. Patient exhibits an age-appropriate fund of knowledge and normal vocabulary. Visual curtis full to confrontation. Visual acuity normal. Pupils equal round reactive to light and accommodation. Eye movements normal. Facial sensation intact. There is no facial droop or facial weakness. Palate elevates to midline. Tongue protrudes to midline. Shoulder shrug and hearing intact bilaterally. Sensation intact to light touch, temperature, vibration, and proprioception for all 4 limbs. Deep tendon reflexes are 2+ for the arms and legs bilaterally. Plantar responses equivocal for the right, downgoing for the left. There is no dysmetria with finger to nose or heel to mancia bilaterally. Ophthalmoscopic examination reveals normal-appearing optic nerves and posterior elements. No papilledema or hemorrhages. Carotid pulses normal bilaterally, no bruits to auscultation. Musculoskeletal examination reveals normal strength and tone are all 4 limbs. No atrophy. No fasciculations. No abnormal movements observed. Gait and station normal. Laboratory Results Past 24 Hours: 12/03/16 06:45 12/03/16 06:45 Test 12/02/16 13:25 12/02/16 15:35 12/03/16 06:45 12/03/16 08:01 Urine Color YELLOW Urine Appearance CLEAR (CLEAR) Urine pH 6.5 (4.5-7.5) Urine Specific [place] 1.011 (1.000-1.030) Urine Protein NEG (NEG) Urine Glucose (UA) NEG (NEG) Urine Ketones NEG (NEG) Urine Occult Blood 2+ (NEG) Urine Nitrite NEG (NEG) Urine Bilirubin NEG (NEG) Urine Urobilinogen NEG (NEG) Urine Leukocyte Esterase TRACE (NEG) Urine WBC (Auto) 1-5 /hpf (0-5) Urine RBC (Auto) 5-10 /hpf (0-4) Urine Hyaline Casts (Auto) 1-5 /lpf (0-5) Urine Epithelial Cells (Auto) >30 /lpf (0-5) Urine Bacteria (Auto) NEG (NEG) Immature Granulocyte % (Auto) 0.2 % White Blood Count 12.35 K/uL (4.8-10.8) Red Blood Count 4.90 M/uL (4.2-5.4) 4.40 M/uL (4.2-5.4) Hemoglobin 14.3 g/dL (12.0-16.0) Hematocrit 42.9 % (37-47) Mean Corpuscular Volume 87.6 fL (80-100) 88.2 fL (80-100) Mean Corpuscular Hemoglobin 29.2 pg (25-34) 29.1 pg (25-34) Mean Corpuscular Hemoglobin Concent 33.3 g/dl (32-36) 33.0 g/dl (32-36) Platelet Count 356 K/uL (130-400) Mean Platelet Volume 8.9 fL (7.4-10.4) 8.9 fL (7.4-10.4) Neutrophils (%) (Auto) 53.1 % Lymphocytes (%) (Auto) 36.8 % Monocytes (%) (Auto) 6.6 % Eosinophils (%) (Auto) 2.8 % Basophils (%) (Auto) 0.5 % Neutrophils # (Auto) 6.54 K/uL (1.4-6.5) Lymphocytes # (Auto) 4.55 K/uL (1.2-3.4) Monocytes # (Auto) 0.82 K/uL (0.11-0.59) Eosinophils # (Auto) 0.35 K/uL (0-0.5) Basophils # (Auto) 0.06 K/uL (0-0.2) Immature Granulocyte # (Auto) 0.03 K/uL (0.00-0.02) Prothrombin Time 10.6 SECONDS (9.0-12.0) Prothromb Time International Ratio 1.0 (0.9-1.1) Activated Partial Thromboplast Time 28.2 SECONDS (21.0-31.0) Partial Thromboplastin Ratio 1.1 Total Bilirubin 0.8 mg/dl (0.2-1) Direct Bilirubin 0.1 mg/dl (0-0.2) Aspartate Amino Transf (AST/SGOT) 11 U/L (15-37) Alanine Aminotransferase (ALT/SGPT) 28 U/L (12-78) Alkaline Phosphatase 101 U/L (45-117) Total Creatine Kinase 42 U/L (26-192) Creatine Kinase MB 0.6 ng/ml (0.5-3.6) Creatine Kinase MB Ratio 1.4 (0-3.0) Total Protein 7.1 gm/dl (6.4-8.2) Albumin 3.5 gm/dl (3.4-5.0) Human Chorionic Gonadotropin, Qual NEG (NEG) RDW Standard Deviation 45.6 fL (36.4-46.3) RDW Coefficient of Variation 14.1 % (11.5-14.5) Anion Gap 5.0 mmol/L (3-11) Est Creatinine Clear Calc Drug Dose 67.1 ml/min Estimated GFR () 65.9 Estimated GFR (Non- 56.9 BUN/Creatinine Ratio 10.7 (10-20) Calcium Level 8.5 mg/dl (8.5-10.1) Magnesium Level 2.0 mg/dl (1.8-2.4) Troponin I < 0.015 ng/ml (0-0.045) Triglycerides Level 192 mg/dl (0-150) Cholesterol Level 188 mg/dl (0-200) HDL Cholesterol 48 mg/dl LDL Cholesterol, Calculated 102 mg/dl VLDL Cholesterol, Calculated 38 mg/dl Cholesterol/HDL Ratio 3.9 Impression 56-year-old female with resolved neurologic symptoms in the context of hypertensive urgency. Her neurological examination is intact at this time although she does have an equivocal plantar response on the right and did complain of some heaviness of the right foot sometime around symptom onset. Although the significance of this finding is not really certain I am unable to exclude the possibility of a small left hemispheric stroke. Of course, TIA is also possible. Plan Would obtain an MRI of the brain to exclude a possible small acute infarct. Agree with obtaining a carotid ultrasound and MR angiogram of the head as ordered. Given the possibility of stroke or TIA this patient should probably be taking a daily low-dose aspirin. Continue management patient's hypertension. Please contact me if I may be of further assistance.
--- NOTE | 2016-12-03 15:13 | DIAGNOSTIC IMAGING REPORT ---
MR ANGIOGRAM OF THE BRAIN CLINICAL HISTORY: Blurred vision. Transient ischemic attack. COMPARISON STUDY: CT of the brain dated 12/02/2016.. TECHNIQUE: 3-D [id number] MR angiography of the intracranial circulation is performed. 3-D tumble views are created and assessed. IV contrast was not administered for this examination. FINDINGS: The examination is modestly degraded by motion artifact. The right A1 segment is diminutive. A large left posterior communicating artery is identified. There is origin of the right posterior cerebral artery. The internal carotid arteries are widely patent bilaterally, as are the anterior and middle cerebral arteries. There is no significant stenosis identified. The vertebrobasilar system and posterior cerebral arteries are widely patent. The basilar artery is somewhat diminutive. The right vertebral artery is dominant. There is no aneurysm, high-grade stenosis, or focal vessel cutoff seen throughout the intracranial circulation. The brain parenchyma is normal as visualized. IMPRESSION: Unremarkable MR angiogram of the brain noting a mildly motion degraded examination. Electronically signed by: Zachariah Vazquez M.D. 12/03/2016 3:11 PM Dictated Date/Time: 12/03/2016 3:07 PM
--- NOTE | 2016-12-03 15:16 | DIAGNOSTIC IMAGING REPORT ---
MRI OF THE BRAIN WITHOUT IV CONTRAST CLINICAL HISTORY: Blurry vision. Transient ischemic attack. COMPARISON STUDY: CT of the brain dated 12/02/2016. MRI of the brain dated 10/13/2016. TECHNIQUE: MRI of the brain was performed utilizing various T1 and T2-weighted sequences in the axial, sagittal, and coronal planes. IV contrast was not administered for this examination. Examination is modestly degraded by motion artifact. FINDINGS: Brain parenchyma: Scattered tiny foci of microangiopathic change are noted. The brain parenchyma is otherwise normal in appearance. There is no hemorrhage or mass effect. There is no restricted diffusion to suggest acute ischemia. De La Cruz-white matter differentiation is preserved. No extra-axial fluid collection is seen. The cerebellar tonsils are normal in configuration. Ventricles, sulci, and cisterns: Normal in configuration. Pituitary and sella: Partially empty sella is incidentally noted. Intracranial vasculature: Normal flow voids are maintained at the skull base. Orbits: The bony orbits are grossly intact. Orbital contents are normal in appearance. Sinuses and mastoids: Clear. Calvarium: Unremarkable. Cervical cord: Partially visualized cervical spinal cord is normal in morphology and signal intensity. IMPRESSION: No acute intracranial abnormality noting a motion degraded examination. Electronically signed by: Zachariah Vazquez M.D. 12/03/2016 3:15 PM Dictated Date/Time: 12/03/2016 3:12 PM
[2016-12-03 15:36] VITALS: BP_SYST 161; BP_SYST 169; BP_DIAS 92; BP_DIAS 93; PULSE 67; TEMP 36.7; O2SAT 95
--- NOTE | 2016-12-03 15:51 | DIAGNOSTIC IMAGING REPORT ---
ULTRASOUND OF THE CAROTID ARTERIES CLINICAL HISTORY: Transient ischemic attack. COMPARISON STUDY: No priors. TECHNIQUE: Real-time, grayscale, and color Doppler sonography of the carotid arteries is performed. Images are reviewed in the transverse and longitudinal planes. FINDINGS: Blood pressure in the right arm measures 131/80 and blood pressure in the left arm measures 137/77. The carotid arteries are patent bilaterally and demonstrate antegrade flow. There is no significant atherosclerotic plaque identified. Normal doppler arterial waveforms are seen throughout. Velocity measurements are listed below. Common carotid peak systolic velocity (cm/sec): RIGHT: 79 LEFT: 67 ICA proximal peak systolic velocity (cm/sec): RIGHT: 63 LEFT: 56 ICA mid peak systolic velocity (cm/sec): RIGHT: 70 LEFT: 80 ICA distal peak systolic velocity (cm/sec): RIGHT: 74 LEFT: 80 ICA/CC peak systolic ratio: RIGHT: 0.9 LEFT: 1.2 Antegrade flow was shown in the vertebral arteries. The external carotid arteries are patent. IMPRESSION: 1. There is no sonographic evidence of hemodynamically significant stenosis in the right or left carotid arterial system. 2. Antegrade flow is shown in the vertebral arteries. Electronically signed by: Zachariah Vazquez M.D. 12/03/2016 3:49 PM Dictated Date/Time: 12/03/2016 3:48 PM
[2016-12-03] MEDS ORDERED: OLMESARTAN MEDOXOMIL 20 MG TAB PO ONE (19:30)
--- NOTE | 2016-12-03 19:39 | Hospitalist Progress Note ---
Hospitalist Progress Note Date of Service December 03, 2016. Subjective Pt evaluation today including: conversation w/ patient Feeling very well, no more tingling, no CP or SOB, no headache. Had all testing today and reviewed results with her-all normal. Awaiting ECHO. States she was lowered on her dose of Benicar in Jul when she was hospitalized with syncope and JOLYNN from influenza. I actually took care ofher that admission. SHe had a Holter monitor after that which did not show any significant abnormalities All Other Systems: Reviewed and Negative Objective Vital Signs Date Time Temp Pulse Resp B/P Pulse Ox O2 Delivery O2 Flow Rate FiO2 12/03/16 16:00 Room Air 12/03/16 15:36 36.7 67 20 169/93 95 161/92 12/03/16 11:30 36.9 67 18 137/77 95 Room Air 12/03/16 11:30 95 Room Air 12/03/16 08:03 36.6 67 20 131/80 94 Room Air 12/03/16 07:30 Room Air 12/03/16 04:00 36.7 64 18 145/87 96 Room Air 12/03/16 04:00 Room Air 12/03/16 00:00 Room Air 12/02/16 23:51 36.8 65 18 154/88 96 Room Air 12/02/16 21:21 36.6 69 18 163/86 96 Room Air 12/02/16 20:56 66 18 147/85 95 Room Air 12/02/16 20:31 140/79 12/02/16 20:08 71 17 94 12/02/16 20:01 155/92 12/02/16 19:57 152/88 12/02/16 19:47 152/88 12/02/16 19:38 63 18 95 12/02/16 19:31 175/108 12/02/16 19:28 211/95 Physical Exam General Appearance: WD/WN, no apparent distress, + obese Eyes: normal inspection, sclerae normal ENT: hearing grossly normal Neck: trachea midline Respiratory/Chest: lungs clear, normal breath sounds, no respiratory distress, no accessory muscle use Cardiovascular: regular rate, rhythm, no edema, no gallop, no murmur Abdomen: normal bowel sounds, non tender, soft, no organomegaly, no pulsatile mass Extremities: non-tender, normal inspection, no pedal edema, no calf tenderness Neurologic/Psychiatric: no motor/sensory deficits, alert, normal mood/affect, oriented x 3 Skin: normal color, warm/dry, no rash Laboratory Results Last 24 Hours Test 12/03/16 06:45 12/03/16 16:54 White Blood Count 9.72 K/uL Red Blood Count 4.40 M/uL Hemoglobin 12.8 g/dL Hematocrit 38.8 % Mean Corpuscular Volume 88.2 fL Mean Corpuscular Hemoglobin 29.1 pg Mean Corpuscular Hemoglobin Concent 33.0 g/dl RDW Standard Deviation 45.6 fL RDW Coefficient of Variation 14.1 % Platelet Count 306 K/uL Mean Platelet Volume 8.9 fL Sodium Level 141 mmol/L Potassium Level 3.8 mmol/L Chloride Level 101 mmol/L Carbon Dioxide Level 35 mmol/L Anion Gap 5.0 mmol/L Blood Urea Nitrogen 12 mg/dl Creatinine 1.10 mg/dl Est Creatinine Clear Calc Drug Dose 67.1 ml/min Estimated GFR () 65.9 Estimated GFR (Non- 56.9 BUN/Creatinine Ratio 10.7 Random Glucose 140 mg/dl Estimated Average Glucose 157 mg/dl Hemoglobin A1c 7.1 % Calcium Level 8.5 mg/dl Magnesium Level 2.0 mg/dl Troponin I < 0.015 ng/ml Triglycerides Level 192 mg/dl Cholesterol Level 188 mg/dl HDL Cholesterol 48 mg/dl LDL Cholesterol, Calculated 102 mg/dl VLDL Cholesterol, Calculated 38 mg/dl Cholesterol/HDL Ratio 3.9 Bedside Glucose 164 mg/dl Assessment and Plan 56 y/o F w/Hx HTN, asthma, DM, cough syncope. Pt developed B/L facial numbness , numbness in her upper and lower extremities earlier in the day. She also describes a sensation of her R foot dragging for a brief period this AM. She had escorted her to his MD in the afternoon and had her BP checked while she was there. He SBP registered at over 210 and she was instructed to attend the hospital. He pressure was confirmed at over 200 on arrival although she did respond to a dose of Clonidine. She denies CP, denies N/V, SÁNCHEZ or dysuria - she denies SOB. She is asymptomatic at the time of admission. Although her symptoms were mostly B/L and therefore more likely related to HTN urgency then to a TIA, she did describe a brief episode of what may have been RLE weakness. 1) HTN urgency, h/o Tussive Syncope - Systolic BP 210 on arrival. Pt will be monitored on telemetry - she is on an ARB and a high dose of Metoprolol due to resting tachycardia - she states she is also on a low dose of Lasix at 10mg. She responded to a single dose of 0.3 clonidine in the ER. -continue Toprol XL 200mg daily, continue increased dose of lasix 20mg daily -increase Benicar to 40mg total daily dose with extra dose of 20mg tonight -check ECHO -follow on tele -encouraged weigh tloss, increased exercise, and DASH diet 2) Numbness - possible RLE weakness - placed on telemetry with Neuro-checks - no deficits on admission -MRI brain, MRA head, Carotids all normal. Likely secondary to hypertensive urgency. Appreciate Neuro consultation-discussed with Dr. Petit on the phone -increased ASA and Statin dose for primary prevention -control BP 3) DM - on Metformin only which is held - we will start a SS if needed - Glu 91 on admission. 4) HPL - cont Statin 5) Asthma - mod - cont inhalers as prescribed. Full code - heparin prophylaxis DIspo-likely to home tomorrow after ECHO and if BP controlled
[2016-12-03 19:57] VITALS: BP 145/85; PULSE 62; TEMP 36.7; O2SAT 95
[2016-12-03 22:57] VITALS: BP 135/80; PULSE 65; TEMP 36.9; O2SAT 95
[2016-12-04 03:11] VITALS: BP 152/84; PULSE 64; TEMP 36.5; O2SAT 97
[2016-12-04] MEDS: HEPARIN SOD 5000 UNIT/0.5 ML CARP SQ SCH ×2 (05:22→14:00)
[2016-12-04] MEDS: LEVOTHYROXINE 75 MCG TAB PO SCH (05:23)
[2016-12-04 06:42] LABS: BUN/CREATININE RATIO 14.6 (10-20); CALCIUM 8.5 mg/dl (8.5-10.1); MAGNESIUM 2.3 mg/dl (1.8-2.4); POTASSIUM 3.6 mmol/L (3.5-5.1)
[2016-12-04] MEDS ORDERED: PERFLUTREN LIPID MICROSPHERE (DEFINITY) IV ONE (07:16)
[2016-12-04 08:00] VITALS: BP 158/87; PULSE 66; TEMP 36.8; O2SAT 95
[2016-12-04] MEDS: DULOXETINE HCL 60 MG CAP PO SCH (08:19)
[2016-12-04] MEDS: METOPROLOL SUCC 50MG EXT REL TAB PO SCH (08:20)
[2016-12-04] MEDS: FLUTICASONE/SALMETEROL 250/50 (ADVAIR) 14 PUFF/1 INHALER INH SCH (08:20)
[2016-12-04] MEDS: FUROSEMIDE 20 MG TAB PO SCH (08:20)
[2016-12-04 11:23] VITALS: BP 169/90; PULSE 67; O2SAT 96
[2016-12-04 11:55] VITALS: BP 147/77; PULSE 70; TEMP 36.6; O2SAT 96
--- NOTE | 2016-12-04 14:00 | ECHOCARDIOGRAM REPORT ---
*NOTICE TO RECEIVING LIBERTARIAN AGENCY This information is strictly Confidential and protected under [place] law. [place] law prohibits you from making any further disclosure of this information unless further disclosure is expressly permitted by the written consent of the person to whom it pertains or is authorized by law. A general authorization for the release of medical or other information is not sufficient for this purpose. Hospital accepts no responsibility if the information is made available to any other person, INCLUDING THE PATIENT. Interpretation Summary * Name: CARY MIRANDA Study Date: 12/04/2016 06:46 AM BP: 145/87 mmHg * Patient Location: C.2T\S\S229\S\1 HR: 57 * : 1960 (M/d/yyyy) Gender: Female Height: 62 in * Age: 56 yrs Ethnicity: CA Weight: 234 lb * Ordering Physician: Jennifer Sullivan * Referring Physician: Self, Referred * Performed By: Toy Villalpando RDCS * * Reason For Study: Cerebral ischemia/Embolus * BSA: 2.0 m2 * -- Conclusions -- * 1. Normal left ventricular size and systolic function. EF 60-65%. No regional wall motion abnormalities. No left ventricular hypertrophy. No significant diastolic dysfunction. * 2. No significant valvular abnormalities visualized. * 3. No prior study available for comparison. Procedure Details * A complete two-dimensional transthoracic echocardiogram was performed (2D, M-mode, Doppler and color flow Doppler). * The study was technically difficult. * There were technical limitations due to patient'sbody habitus * The study was technically difficult, but visualization was adequate with the administration of Definity ultrasound contrast. * A saline contrast injection was performed to assess for cardiac shunting. * The injection was performed through an intravenous line in the right arm. * The attending nurse who injected the saline contrast was CHUY Vazquez. * A total of 10 cc of agitated saline was given. * A contrast injection of Definity was performed to improve assessment of LV function. * Contrast was injected into an intravenous site in the right arm. * One vial of Definity ultrasound contrast was diluted in normal saline to a total volume of 10 ml. A total of '3' ml of solution was administered during imaging. * Lot # [id number] of Definity utilized for procedure. * Expiration date 1JUN18. * The attending nurse who injected the contrast agent was CHUY Vazquez. Left Ventricle * Normal left ventricular size and systolic function. EF 60-65%. No regional wall motion abnormalities. No left ventricular hypertrophy. No significant diastolic dysfunction. Right Ventricle * The right ventricle is normal in size and function. * The right ventricular systolic function is normal as assessed by tricuspid annular plane systolic excursion (TAPSE) (normal >1.5 cm). Atria * The left atrial size is normal. * Right atrial size is normal. * No visualized ASD, however inter atrial septum is not well-visualized. Nondiagnostic images following agitated saline, as the agitated saline images followed IV echo contrast and image quality was poor. Mitral Valve * The mitral valve is grossly normal. * There is no mitral valve stenosis. * Significant mitral regurgitation is absent. Tricuspid Valve * The tricuspid valve is not well visualized, but is grossly normal. * There is no tricuspid stenosis. * Significant tricuspid regurgitation is absent. Aortic Valve * The aortic valve is normal in structure and function. * No hemodynamically significant valvular aortic stenosis. * No aortic regurgitation is present. Pulmonic Valve * The pulmonary valve is inadequately visualized, but the Doppler data is adequate for interpretation. * There is no pulmonic valvular stenosis. * There is no significant pulmonary regurgitation. Great Vessels * The aortic root is normal size. * Ascending aorta of normal dimension * Normal pulmonary venous flow pattern. Pericardium/Pleural * There is no pericardial effusion. Great Vessels * Normal inferior vena cava size and collapsability with sniff indicates a normal right atrial pressure of 3 mmHg MMode 2D Measurements and Calculations IVSd 0.88 cm IVSs 1.4 cm LVIDd 4.4 cm LVIDs 2.5 cm LVPWd 0.87 cm LVPWs 1.4 cm IVS/LVPW 1.0 FS 42.2 % EDV(Teich) 87.6 ml ESV(Teich) 23.3 ml EF(Teich) 73.4 % EDV(cubed) 85.1 ml ESV(cubed) 16.5 ml EF(cubed) 80.7 % % IVS thick 59.8 % % LVPW thick 58.3 % LV mass(C)d 123.4 grams LV mass(C)dI 60.4 grams/m\S\2 LV mass(C)s 112.9 grams LV mass(C)sI 55.3 grams/m\S\2 SV(Teich) 64.3 ml SI(Teich) 31.5 ml/m\S\2 SV(cubed) 68.6 ml SI(cubed) 33.6 ml/m\S\2 EPSS 0.67 cm Ao root diam 2.6 cm Ao root area 5.3 cm\S\2 ACS 1.7 cm LA dimension 4.7 cm asc Aorta Diam 2.3 cm LA/Ao 1.8 LVOT diam 1.9 cm LVOT area 3.0 cm\S\2 LVAd ap4 27.7 cm\S\2 LVLd ap4 8.5 cm EDV(MOD-sp4) 76.0 ml LVAs ap4 15.2 cm\S\2 LVLs ap4 6.6 cm ESV(MOD-sp4) 30.0 ml EF(MOD-sp4) 60.5 % LVAd ap2 23.1 cm\S\2 LVLd ap2 7.0 cm EDV(MOD-sp2) 64.0 ml LVAs ap2 13.0 cm\S\2 LVLs ap2 5.9 cm ESV(MOD-sp2) 24.0 ml EF(MOD-sp2) 62.5 % SV(MOD-sp4) 46.0 ml SI(MOD-sp4) 22.5 ml/m\S\2 SV(MOD-sp2) 40.0 ml SI(MOD-sp2) 19.6 ml/m\S\2 Doppler Measurements and Calculations MV E max kendra 93.8 cm/sec MV A max kendra 69.7 cm/sec MV E/A 1.3 MV dec time 0.18 sec Ao V2 max 153.8 cm/sec Ao max PG 9.5 mmHg Ao max PG (full) 5.8 mmHg FANY(V,A) 1.9 cm\S\2 FANY(V,D) 1.9 cm\S\2 LV V1 max PG 3.7 mmHg LV V1 max 96.3 cm/sec PA V2 max 107.7 cm/sec PA max PG 4.6 mmHg RAP systole 3.0 mmHg
[2016-12-04] MEDS ORDERED: BNC20 PO (15:17)
[2016-12-04] MEDS ORDERED: TPRSR50 PO (15:17)
[2016-12-04] MEDS ORDERED: LSX20 PO (15:17)
[2016-12-04 15:25] VITALS: BP 158/89; PULSE 110; TEMP 37; O2SAT 96
--- NOTE | 2016-12-04 15:27 | Discharge Instructions ---
Discharge Instructions Date of Service December 04, 2016. Admission Reason for Admission: Hypertensive Urgency Discharge Discharge Diagnosis / Problem: Hypertensive Urgency Discharge Goals Goal(s): Improve disease control, Diagnostic testing, Therapeutic intervention Activity Recommendations Activity Limitations: resume your previous activity (and recommend exercise program with goal of weight loss-please discuss with your PCP) . Instructions / Follow-Up Instructions / Follow-Up You were admitted with a significantly elevated blood pressure causing numbness. You had a negative workup for stroke-you DID NOT have a stroke. After your blood pressure was controlled, your symptoms resolved. Your Benicar and lasix doses were increased and your blood pressure was improved. Please talk to your PCP about weight loss programs to include dietary and exercise recommendations. Please follow up with your PCP within 1 week. Check your BP daily at home and keep a log of the readings. Current Hospital Diet Patient's current hospital diet: Diabetes Type 2 Diet, AHA Diet (Heart Healthy) Discharge Diet Recommended Diet: AHA Diet (Heart Healthy) Procedures Procedures Performed: Echocardiogram MRI Brain MRA head Carotid ultrasound Head CT Chest xray Pending Studies Studies pending at discharge: no Laboratory Results Hemoglobin A1c Test 12/03/16 06:45 Range/Units Estimated Average Glucose 157 mg/dl Hemoglobin A1c 7.1 H 4.5-5.6 % Lipid Panel Test 12/03/16 06:45 Range/Units Triglycerides Level 192 H 0-150 mg/dl Cholesterol Level 188 0-200 mg/dl HDL Cholesterol 48 mg/dl Cholesterol/HDL Ratio 3.9 LDL Cholesterol, Calculated 102 mg/dl Medical Emergencies . Who to Call and When: Medical Emergencies: If at any time you feel your situation is an emergency, please call 911 immediately. . Non-Emergent Contact Non-Emergency issues call your: Primary Care Provider Call Non-Emergent contact if: you have any medication questions BP>170/100 or if you have lightheadedness, headaches, chest pain, or shortness of breath. . . "Provider Documentation" section prepared by Jennifer Sullivan. . VTE Core Measure Inpt VTE Proph given/why not?: Unfractionated heparin SQ
[2016-12-04 15:49] VITALS: BP 158/89; PULSE 110; TEMP 37; O2SAT 96
[2016-12-04] MEDS ORDERED: OLMESARTAN MEDOXOMIL 20 MG TAB PO SCH (21:00)
--- NOTE | 2016-12-22 15:43 | Discharge Summary ---
Discharge Summary Date of Service December 04, 2016. Discharge Summary Admission Date: December 02, 2016 at 20:17 Discharge Date: December 04, 2016 Discharge Disposition: Home Principal Diagnosis: Hypertensive Urgency Problems/Secondary Diagnoses: HTN Asthma DMII History of Cough syncope Facial and extremity paresthesias Obesity Hyperlipidemia Procedures: Echocardiogram: * 1. Normal left ventricular size and systolic function. EF 60-65%. No regional wall motion abnormalities. No left ventricular hypertrophy. No significant diastolic dysfunction. * 2. No significant valvular abnormalities visualized. * 3. No prior study available for comparison. MRI Brain-negative,mild motrion degradation MRA head-negative,mild motrion degradation Carotid ultrasound-negative Head CT-negative Chest xray-mild stable cardiomegaly Consultations: Neurology Medication Reconciliation New Medications: Furosemide (Furosemide) 20 Mg Tab 20 MG PO QAM for 30 Days, #30 TAB Metoprolol Succinate (Metoprolol Succinate ER) 50 Mg Tabcr 200 MG PO QAM for 30 Days Original Home Med listed as metoprolol tartrate was WRONG, this is her home med Olmesartan Medoxomil (Benicar) 20 Mg Tab 40 MG PO HS for 30 Days, TAB No new Rx needed-she has this med at home Continued Medications: Albuterol Hfa (Ventolin Hfa) 200 Puffs/13524 Mcg Aers 2-4 PUFFS INH Q6H, #1 INHALER Aspirin Enteric Coated (Ecotrin Or Generic) 81 Mg Tab 81 MG PO DAILY, TAB Duloxetine HCl (Duloxetine HCl) 60 Mg Cap 60 MG PO DAILY Fluticasone Prop/Salmeterol (Advair Diskus 250-50 Mcg/Dose) 14 Puff/1 Inhaler Aerp 1 PUFF INH BID for 14 Days, #1 INHALER Levothyroxine Sodium (Levothyroxine Sodium) 75 Mcg Tab 75 MCG PO DAILY Metformin HCl (Metformin HCl) 500 Mg Tab 500 MG PO BID Pravastatin Sod (Pravastatin Sodium) 20 Mg Tab 20 MG PO DAILY Solifenacin (Vesicare) 10 Mg Tab 10 MG PO DAILY Discontinued Medications: Metoprolol Tartrate (Lopressor) (Lopressor) 100 Mg Tab 200 MG PO DAILY for 30 Days, #60 TAB 5 Refills Olmesartan Medoxomil (Benicar) 20 Mg Tab 20 MG PO DAILY, TAB Referrals At Discharge Follow up Referrals: Physician Referral - Within 1 Week with Pro,Nas Chacon M.D. Discharge Exam Doing well on day of discharge. No further paresthesias, BP better controlled. No CP or SOB Physical Exam General Appearance: WD/WN, no apparent distress, + obese Eyes: normal inspection, sclerae normal ENT: hearing grossly normal Neck: trachea midline Respiratory/Chest: lungs clear, normal breath sounds, no respiratory distress, no accessory muscle use Cardiovascular: regular rate, rhythm, no edema, no gallop, no murmur Abdomen: normal bowel sounds, non tender, soft, no organomegaly, no pulsatile mass Extremities: non-tender, normal inspection, no pedal edema, no calf tenderness Neurologic/Psychiatric: no motor/sensory deficits, alert, normal mood/affect, oriented x 3 Skin: normal color, warm/dry, no rash Review of Systems: Constitutional: No fever Eyes: No problem reported ENT: No problem reported Respiratory: No problem reported Cardiovascular: No problem reported Abdomen: No problem reported Musculoskeletal: No problem reported Genitourinary - Female: No problem reported Neurologic: No problem reported Psychiatric: No problem reported Endocrine: No problem reported Hematologic / Lymphatic: No problem reported Integumentary: No problem reported Hospital Course 56 y/o F w/Hx HTN, asthma, DM, cough syncope. Pt developed B/L facial numbness , numbness in her upper and lower extremities earlier in the day. She also describes a sensation of her R foot dragging for a brief period this AM. She had escorted her to his MD in the afternoon and had her BP checked while she was there. He SBP registered at over 210 and she was instructed to attend the hospital. He pressure was confirmed at over 200 on arrival although she did respond to a dose of Clonidine. She denies CP, denies N/V, SÁNCHEZ or dysuria - she denies SOB. She is asymptomatic at the time of admission. Although her symptoms were mostly B/L and therefore more likely related to HTN urgency then to a TIA, she did describe a brief episode of what may have been RLE weakness. She had a negative workup for stroke. She was seen by Neurology in consultation. After her blood pressure was controlled, her symptoms resolved making them related to hypertensive urgency Her Benicar and lasix doses were increased and BP control was improved at the time of discharge. She should discuss with her PCP about weight loss programs to include dietary and exercise recommendations. She was instructed to follow her BPs at home and keep a log book for her PCP. 1) HTN urgency, h/o Tussive Syncope - Systolic BP 210 on arrival. Pt will be monitored on telemetry - she is on an ARB and a high dose of Metoprolol due to resting tachycardia - she states she is also on a low dose of Lasix at 10mg. She responded to a single dose of 0.3 clonidine in the ER. -continue Toprol XL 200mg daily, continue increased dose of lasix 20mg daily -increase Benicar to 40mg daily - ECHO no significant findings -no significant events on tele -encouraged weight loss, increased exercise, and DASH diet 2) Numbness - possible RLE weakness - placed on telemetry with Neuro-checks - no deficits on admission -MRI brain, MRA head, Carotids all normal. Likely secondary to hypertensive urgency. Appreciate Neuro consultation-discussed with Dr. Petit. -increased ASA and Statin dose for primary prevention -control BP 3) DMII - HgbA1C 7.1% here. -continue Metformin on discharge and exercise, weight loss 4) HPL - cont Statin 5) Asthma - mod - cont inhalers as prescribed. Full code - heparin prophylaxis DIspo- to home Total Time Spent: Greater than 30 minutes This includes examination of the patient, discharge planning, medication reconciliation, and communication with other providers. Discharge Instructions Please refer to the electronic Patient Visit Report (Discharge Instructions) for additional information. Follow-Up PCP within 1 week Additional Copies To Nas Johnston M.D.
== END 2016-12-04 16:04 | disposition home or self-care (01) | DRG 305 ==
LOC: ENRESERVTM → ENRESERVDT → C.EDB 15:10 → C.2T 20:17
PROVIDERS: ADMIT Internal Medicine; ATTEND Family Medicine
DX: I16.0 Hypertensive urgency (principal); Z68.41 Body mass index [BMI] 40.0-44.9, adult; I10 Essential (primary) hypertension; R20.0 Anesthesia of skin; R53.1 Weakness; R00.0 Tachycardia, unspecified; J45.909 Unspecified asthma, uncomplicated; E11.9 Type 2 diabetes mellitus without complications; E78.5 Hyperlipidemia, unspecified; E03.9 Hypothyroidism, unspecified; E66.9 Obesity, unspecified; Z82.3 Family history of stroke; Z79.82 Long term (current) use of aspirin; Z79.51 Long term (current) use of inhaled steroids; Z79.84 Long term (current) use of oral hypoglycemic drugs; Z79.899 Other long term (current) drug therapy

== ENCOUNTER → 2017-03-15 | Outpatient (CLI) | payer BC ==
[~2017-03-15] MED LIST changes: -ALBUAER INH; +BNC20 PO; -GUAISYP4 PO; +LSX20 PO; -METO100T14 PO; -OLME40TA33 PO; +TPRSR50 PO; +VNTHFA/IN INH
--- NOTE | 2017-03-15 13:50 | MAMMOGRAPHY REPORT ---
BILATERAL DIGITAL SCREENING MAMMOGRAM TOMOSYNTHESIS WITH CAD: 03/15/2017 CLINICAL HISTORY: Routine screening. Patient has no complaints. TECHNIQUE: Breast tomosynthesis in addition to standard 2D mammography was performed. Current study was also evaluated with a Computer Aided Detection (CAD) system. COMPARISON: Comparison is made to exams dated: 09/29/2014 mammogram, 09/26/2013 mammogram, 09/16/2011 ma mmogram, 09/25/2012 mammogram, 08/24/2009 stereotactic biopsy, and 09/15/2010 mammogram - [facility]. BREAST COMPOSITION: There are scattered areas of fibroglandular density in both breasts. FINDINGS: No suspicious masses, calcifications, or areas of architectural distortion are noted in ei ther breast. There has been no significant interval change compared to prior exams. A biopsy marker clip is again noted in the right upper outer quadrant. Bilateral asymmetries are stable compared to prior exams. IMPRESSION: ACR BI-RADS CATEGORY 2: BENIGN There is no mammographic evidence of malignancy. A 1 year screening mammogram is recommended. The pa tient will receive written notification of the results. Approximately 10% of breast cancers are not detected with mammography. A negative mammographic report should not delay biopsy if a clinically suggestive mass is present. Jing Cornelius M.D. ah/:03/15/2017 12:06:00 Training Associate: Anthony Brannon, M, [facility] letter sent: Normal 1/2 BI-RADS Code: ACR BI-RADS Category 2: Benign
== END | disposition home or self-care (01) ==
LOC: C.MAMM 11:30
PROVIDERS: ATTEND Internal Medicine
DX: Z12.31 Encounter for screening mammogram for malignant neoplasm of breast (principal)

== ENCOUNTER → 2017-05-17 | Outpatient (CLI) | payer BC | END | disposition home or self-care (01) | LOC: C.PAPS 11:25 | PROVIDERS: ATTEND Obstetrics & Gynecology | DX: Z01.419 Encounter for gynecological examination (general) (routine) without abnormal findings (principal); Z11.51 Encounter for screening for human papillomavirus (HPV) ==

== ENCOUNTER → 2017-06-08 | Outpatient (CLI) | payer BC ==
[2017-06-08 12:25] LABS: BLOOD UREA NITROGEN 16 mg/dl (7-18); BUN/CREATININE RATIO 15.7 (10-20); CARBON DIOXIDE 30 mmol/L (21-32); CHLORIDE 100 mmol/L (98-107); CREATININE 1.03 mg/dl (0.60-1.20); GLUCOSE 164 mg/dl (70-99); SODIUM 137 mmol/L (136-145)
[2017-06-08 12:35] LABS: ESTIMATED AVERAGE GLUCOSE 171 mg/dl; HA1C FLAG Normal (Normal)
[2017-06-08 12:49] LABS: RATIO 6.1 mcg/mg (0-30.0)
== END | disposition home or self-care (01) ==
LOC: C.LABPBG 09:20
PROVIDERS: ATTEND Internal Medicine
DX: E11.9 Type 2 diabetes mellitus without complications (principal); E55.9 Vitamin D deficiency, unspecified; E53.8 Deficiency of other specified B group vitamins

== ENCOUNTER → 2017-11-27 | Outpatient (CLI) | payer OTHER ==
[~2017-11-27] MED LIST changes: +ASPI-319 PO; -ASPI81TA21 PO
[2017-11-27 13:37] LABS: HEMOGLOBIN A1C 6.6 % (4.5-5.6)
[2017-11-27 13:50] LABS: ALBUMIN 3.5 gm/dl (3.4-5.0); ALKALINE PHOSPHATASE 78 U/L (45-117); ALT/SGPT 30 U/L (12-78); AST/SGOT 17 U/L (15-37); BLOOD UREA NITROGEN 17 mg/dl (7-18); CALCIUM 8.8 mg/dl (8.5-10.1); CARBON DIOXIDE 29 mmol/L (21-32); CHOLESTEROL 175 mg/dl (0-200); CREATININE 0.95 mg/dl (0.60-1.20); GLUCOSE 121 mg/dl (70-99); LDL CHOLESTEROL CALCULATED 82 mg/dl; POTASSIUM 3.7 mmol/L (3.5-5.1); SODIUM 139 mmol/L (136-145); TOTAL PROTEIN 6.9 gm/dl (6.4-8.2)
== END | disposition home or self-care (01) ==
LOC: C.LABPBG 09:48
PROVIDERS: ATTEND Family Medicine
DX: E11.9 Type 2 diabetes mellitus without complications (principal)

== ENCOUNTER 2018-08-20 05:11 | Observation (INO) ==
--- NOTE | 2018-08-02 13:16 | Anesthesiology Consultation ---
Date of Service August 02, 2018 Assessment & Plan (1) Encounter for pre-operative examination: Plan: CHECK BSG AM DOS. Chart Review Chart Review: Acceptable Risk for Surgery and Patient seen in Pre Admission Testing Teaching & Discussion Instructed NPO after midnight before surgery, except medications with 15 cc of water. Medication instructions provided according to the PAT guidelines. History Surgery Operation Date: 08/20/18 07:30 Proposed Procedures p Robotic Total Laparoscopic Hysterectomy - [place]mira Alfaro MD Height/Weight Height: 5 ft 2 in Weight: 105.6 kg Allergies Allergy/AdvReac Type Severity Reaction Status Date / Time No Known Allergies Allergy Unverified 08/01/18 14:07 Medications Home Medications Medication Instructions Recorded Confirmed Last Taken aspirin [Aspir-81] 81 mg PO QPM 08/01/18 08/01/18 07/31/18 cholecalciferol (vitamin D3) 2,000 unit PO QPM 08/01/18 08/01/18 07/31/18 [Vitamin D3] glipizide 5 mg PO BID 08/01/18 08/01/18 08/01/18 hydrochlorothiazide 12.5 mg PO QAM 08/01/18 08/01/18 08/01/18 levothyroxine 75 mcg PO QPM 08/01/18 08/01/18 07/31/18 losartan 100 mg PO QAM 08/01/18 08/01/18 08/01/18 metformin 500 mg PO BID 08/01/18 08/01/18 08/01/18 metoprolol tartrate 100 mg PO BID 08/01/18 08/01/18 08/01/18 pravastatin 20 mg PO QPM 08/01/18 08/01/18 07/31/18 sertraline 100 mg PO QAM 08/01/18 08/01/18 08/01/18 Past Medical History Medical History Hypertensive urgency Admitted [facility] 11/2016 for this with asthma, tussive syncope and possible TIA. TIA ruled out, cardiac w/u was WNL. Asthma Prone to bronchitis, common cold 'goes to lungs' often, but no daily inhaler use Diabetes Hyperlipidemia Hypertension Thyroid disease Past Family History Family History Sister Family history of breast cancer Past Surgical History Surgical History History of colonoscopy History of endometrial ablation History of tubal ligation Past Anesthesia History No Hx of Anesthesia Complications and No Family Hx of Anesthesia Complications History of PONV No Motion Sickness Screening History of Motion Sickness: No Social History Smoking Status: Never smoker Do You Dip or Chew Tobacco: No Hx Alcohol Use: Yes Alcohol type: hard liquor alcohol intake frequency: holidays/special occasions only Hx Substance Use: No substance use type: does not use Exercise / Class Metabolic Activity III < 4 Walking/Shop/Light housework (mild +SOB with exertion 2/2 deconditioning /obesity) Review of Systems Pt denies any recent chest pain, shortness of breath, palpitations, cough, fever or URI. Physical Exam Vital Signs BP: 109/73 P: 61bpm SPO2: 95% RA T: 98.4 F R: 16 ENMT Mouth: + dentures (full upper); no chipped teeth and no loose teeth Thyromental Distance: < 3.5 Finger Breadths Mallampati Class: II Neck + short neck and + thick neck; neck extension not limited Respiratory normal respiratory effort Auscultation: lungs clear to auscultation bilaterally Cardiovascular Rate/Rhythm: regular rhythm and + bradycardic Heart Sounds: no murmur Vessels: no carotid bruit Extremities: no edema Testing Electrocardiogram Date: 08/02/18 Findings: + SB @ (57) Echocardiogram Date: 12/02/16 Normal left ventricular size and systolic function. EF 60-65%. No regional wall motion abnormalities. No left ventricular hypertrophy. No significant diastolic dysfunction. No significant valvular abnormalities visualized. Laboratory Results 08/02/18 12:56 08/02/18 12:56 Blood Type A Positive 08/02/18 12:56 Antibody Screen NEGATIVE 08/02/18 12:56 HgA1C 05/22/18: 6.4%
--- NOTE | 2018-08-02 13:22 | PAT Medication Instructions ---
Medication Instructions Date of Service August 02, 2018 Home Medications aspirin [Aspir-81] 81 mg PO QPM cholecalciferol (vitamin D3) 2,000 unit PO QPM glipizide 5 mg PO BID hydrochlorothiazide 12.5 mg PO QAM levothyroxine 75 mcg PO QPM losartan 100 mg PO QAM metformin 500 mg PO BID metoprolol tartrate 100 mg PO BID pravastatin 20 mg PO QPM sertraline 100 mg PO QAM ASK your surgeon for instructions aspirin [Aspir-81] 81 mg PO QPM DO NOT take the morning of surgery glipizide 5 mg PO BID hydrochlorothiazide 12.5 mg PO QAM losartan 100 mg PO QAM metformin 500 mg PO BID Take morning of surgery With a small sip of water, OTHERWISE NOTHING TO EAT OR DRINK AFTER MIDNIGHT: metoprolol tartrate 100 mg PO BID sertraline 100 mg PO QAM Take evening before surgery cholecalciferol (vitamin D3) 2,000 unit PO QPM glipizide 5 mg PO BID levothyroxine 75 mcg PO QPM metoprolol tartrate 100 mg PO BID metformin 500 mg PO BID pravastatin 20 mg PO QPM Other Notes If you have any questions please call us at [phone] or [phone] or [phone] or [phone]
[2018-08-02 13:50] LABS: Basophils # (auto) 0.05 K/uL (0-0.2); Basophils % (auto) 0.6 %; Eosinophils % (auto) 2.3 %; Hematocrit (blood only) 43.2 % (37-47); Hemoglobin 14.3 g/dL (12.0-16.0); Immature Granulocytes # (auto) 0.01 K/uL (0.00-0.02); Immature Granulocytes % (auto) 0.1 %; Lymphocytes # (auto) 2.48 K/uL (1.2-3.4); Lymphocytes % (auto) 28.1 %; Mean Corpuscular Hgb Conc 33.1 g/dL (32-36); Mean Corpuscular Volume 90.9 fL (80-100); Mean Platelet Volume 9.7 fL (7.4-10.4); Monocytes # (auto) 0.58 K/uL (0.11-0.59); Monocytes % (auto) 6.6 %; Neutrophils # (auto) 5.51 K/uL (1.4-6.5); Neutrophils % (auto) 62.3 %; Platelet Count 316 K/uL (130-400); RDW Coefficient of Variation 12.9 % (11.5-14.5); RDW Standard Deviation 42.8 fL (36.4-46.3); Red Blood Count 4.75 M/uL (4.2-5.4); White Blood Count 8.83 K/uL (4.8-10.8)
[2018-08-02 15:13] LABS: BUN Creatinine Ratio 15.4 (10-20); Calcium 9.1 mg/dl (8.5-10.1); Creatinine Clr Calc Pharmacy 64.6 ml/min; Est GFR (African American) 64.3; Est GFR (Non-African American) 55.5; Potassium 3.9 mmol/L (3.5-5.1)
[2018-08-20] MEDS ORDERED: CEFAZOLIN 3000MG 65 ML IV SCH (06:00)
[2018-08-20] MEDS ORDERED: LR 15ML/HR IV SCH ×2 (06:00)
[2018-08-20] MEDS ORDERED: GLYCOPYRROLATE 0.2 MG/ML VIAL ONE (06:59)
[2018-08-20] MEDS ORDERED: ONDANSETRON INJ 2 MG/ML 2 ML VIAL ONE (06:59)
[2018-08-20] MEDS ORDERED: NEOSTIGMINE METHYLSULFATE 5 MG/5 ML SYR ONE (06:59)
[2018-08-20] MEDS ORDERED: DEXAMETHASONE SOD INJ 4 MG/ML VIAL ONE (06:59)
[2018-08-20] MEDS ORDERED: PROPOFOL IV EMULSION 10 MG/ML 20 ML VIAL IV ONE (06:59)
[2018-08-20] MEDS ORDERED: LIDOCAINE HCL 2% 2 ML VIAL/AMP(20MG/ML) INFIL ONE (06:59)
[2018-08-20] MEDS ORDERED: MIDAZOLAM HCL 1 MG/ML 2ML VIAL ONE (07:00)
[2018-08-20] MEDS ORDERED: fentaNYL citrate 100 MCG/2 ML VIAL ONE (07:00)
[2018-08-20] MEDS ORDERED: OXYCODONE/ACETAMINOPHEN 5mg/325mg TAB PO PRN ×2 (07:09)
[2018-08-20] MEDS ORDERED: IBUPROFEN 600 MG TAB PO PRN (07:09)
[2018-08-20] MEDS ORDERED: MEPERIDINE HCL 50 MG/ML CARP IV PRN (07:09)
[2018-08-20] MEDS ORDERED: KETOROLAC 30 MG/ML VIAL IV PRN (07:09)
[2018-08-20] MEDS ORDERED: MAGNESIUM HYDROXIDE SUSP 30 ML UDC PO PRN (07:09)
[2018-08-20] MEDS ORDERED: SIMETHICONE 80 MG CHEW PO PRN (07:09)
[2018-08-20] MEDS ORDERED: PROMETHAZINE HCL 12.5 MG in SODIUM CHLORIDE 0.9% 50 ML IV PRN (07:09)
[2018-08-20] MEDS ORDERED: ACETAMINOPHEN 325 MG TAB PO PRN (07:09)
[2018-08-20] MEDS ORDERED: MEPERIDINE HCL 25 MG/ML CARP IV PRN (07:09)
[2018-08-20] MEDS ORDERED: PROMETHAZINE HCL 25 MG in SODIUM CHLORIDE 0.9% 50 ML IV PRN (07:09)
--- NOTE | 2018-08-20 07:09 | History & Physical Bridge Note ---
Date of Service August 20, 2018 History & Physical Bridge Note I have examined the patient, reviewed the History & Physical and in the interval since the performance of the History & Physical I have noted the following changes of clinical significance: no changes noted
[2018-08-20] MEDS ORDERED: DOCUSATE SODIUM 100 MG CAP PO SCH (09:00)
[2018-08-20] MEDS ORDERED: METHYLENE BLUE 0.5% 10 ML VIAL ONE (09:09)
[2018-08-20] MEDS ORDERED: ATROPINE SULFATE 0.1 MG/ML 10ML SYR IV PRN (09:16)
[2018-08-20] MEDS ORDERED: ePHEDrine sulfate 50 MG/ML AMP IV PRN (09:16)
[2018-08-20] MEDS ORDERED: ONDANSETRON INJ 2 MG/ML 2 ML VIAL IV PRN (09:16)
[2018-08-20] MEDS ORDERED: PROMETHAZINE HCL 6.25 MG in SODIUM CHLORIDE 0.9% 50 ML IV PRN (09:16)
[2018-08-20] MEDS ORDERED: HYDROmorphone INJ 2 MG/ML SYR/VIAL IV PRN (09:16)
--- NOTE | 2018-08-20 10:13 | Post Operative Brief Note ---
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 Houston catheter inserted by Dr. Alfaro with some difficulty , Draining clear yellow urine. Anesthesia to monitor urine output. Houston catheter removed at end of case. )
[2018-08-20] MEDS: fentaNYL citrate 100 MCG/2 ML VIAL IV PRN ×2 (10:58→11:03)
--- NOTE | 2018-08-20 11:00 | Anesthesiology Progress Note ---
Date of Service August 20, 2018 Anesthesia Post Procedure Vital Signs Vital Signs: Temp Pulse Pulse Resp BP Pulse Ox 08/20/18 10:45 73 22 136/77 99 08/20/18 10:35 78 18 148/75 H 97 08/20/18 10:25 36.5 C 81 29 H 156/87 H 95 08/20/18 05:35 37.1 C 66 20 134/73 97 Notes Mental Status: alert / awake / arousable Patient Amnestic to Procedure: Yes Nausea / Vomiting: adequately controlled Pain: adequately controlled Airway Patency, RR, SpO2: stable & adequate BP & HR: stable & adequate Hydration State: stable & adequate Anesthetic Complications: no major complications apparent
[2018-08-20 14:05] LABS: Hemoglobin 13.7 g/dL (12.0-16.0)
--- NOTE | 2018-08-20 14:18 | Operative Report ---
DATE OF OPERATION: 08/20/2018 PREOPERATIVE DIAGNOSES: Abnormal uterine bleeding and failed endometrial ablation. POSTOPERATIVE DIAGNOSES: Abnormal uterine bleeding and failed endometrial ablation. PROCEDURE: Robotic assisted total laparoscopic hysterectomy with bilateral salpingectomy and cystoscopy including ExCITE procedure. SURGEON: Elmira Alfaro MD ENGRAVER HAND SOFT METALS: None. ESTIMATED BLOOD LOSS: 50 mL. FINDINGS: Consistent with postop diagnosis. DRAINS: Houston catheter placed during procedure and removed prior to ending anesthesia. COMPLICATIONS: None. DISPOSITION: Stable to PACU. DESCRIPTION OF PROCEDURE: Neisha was placed on the table in the dorsal lithotomy position in [facility], prepped and draped in standard sterile fashion and a hard time-out was taken prior to proceeding. An attempt was made to place a Houston catheter; however, the patient's urethra was very narrow and the adult Houston had to be exchanged for a pediatric Houston. Once I obtained the pediatric Houston, placement was no problem. The VCare was then placed in the usual manner and attention was then turned to the abdomen. An infraumbilical incision was made at the site of her prior tubal ligation scar. This was used to make an optical entry to the abdomen using a 12 port and this was done without complication. The abdomen was then insufflated, and under direct visualization, right and left lower quadrant ports were then placed. With the patient in steep Trendelenburg, the bowel was able to be swept far enough out of the way to allow visualization of a relatively normal uterine fundus, ovaries and tubes with evidence of prior ligation. Of note, there was significant adhesive disease evident throughout the pelvis. The robot was then docked. Surgery began with dissection of the right fallopian tube off the mesosalpinx, ligation and division of the right uteroovarian artery and ligation and division of the right round ligament. The broad ligament was dissected to skeletonize the uterine arteries and begin the creation of the bladder flap. This procedure was then repeated on the left with dissection of the fallopian tube and ligation and transection of the uteroovarian ligament and then the round ligament followed by skeletonization again of the broad ligament to expose the uterine arteries. The bladder flap was further developed and then the uterine arteries were bilaterally ligated and divided. Circumferential colpotomy was then performed. Unfortunately, we were unable to extract the uterus vaginally given its fairly broad and globular shape and the patient's relatively narrow vaginal canal. Therefore, the uterus and cervix and tubes remained unblock and in situ in the abdomen while closure of the vaginal cuff proceeded using V-Loc suture in the usual running nonlocked manner. At the completion of closure of the vagina, the suture needle was removed through a robotic port. Suction irrigation was used to ensure good hemostasis at all working sites. Methylene blue dye was administered IV and cystoscopy was performed, although visibility was somewhat limited by our need to use a pediatric cystoscope based on the patient's narrow urethra. We were able to see a strong jet of blue-stained dye from each ureteral orifice. It was somewhat more difficult to see the complete dome of the bladder; however, to the extent that we were able to see it, there did not appear to be any suture or injury to the bladder dome. Cystoscopy was then completed and attention was turned to the abdomen. With the patient in Trendelenburg, the umbilical trocar was swapped out over a blunt probe for the 15 mm trocar through which an EndoCatch bag was introduced and using a 5 mm laparoscope through a robotic side port, we were able to sweep the uterus, cervix and tubes into the EndoCatch bag. The EndoCatch was then brought out through the umbilicus. Using S retractors to help our visualization and Parrish scissors, a 1 cm extension was made to each side on the umbilical fascia to allow better access to the uterus, cervix and tubes, which were in the bag. The Selvin retractor was then placed inside the EndoCatch bag as is typical for the ExCITE procedure. The uterine tissue was grasped with an Allis clamp and elevated while an 11 blade was used to incise circumferentially again as per usual for the ExCITE technique. The specimen was removed in I believe 2, maybe 3 fairly large pieces and these were all sent together for pathology. Of note, both tubes were identified as they were removed and the cervix was actually removed first almost complete, so I am confident that all pieces of tissue were removed and identified. The EndoCatch and Selvin were then removed from the abdomen and briefly holding the incision site closed to allow re-insufflation, we did use the laparoscopy again to survey the abdomen, good hemostasis was seen at all pelvic working sites and no tissue pieces remained in the abdomen. We then turned attention to closure. The furthest lateral edges of the umbilical fascia were grasped with Marion clamps. These were elevated and a UR-6 suture was used to close the fascia at the umbilical site in a running nonlocked manner. A 3-0 chromic was then used in a subdermal layer to close the potential space between the skin and the fascia to minimize the likelihood of seroma formation. The skin was then closed using 4-0 Monocryl. Please note that at the time that we began the ExCITE procedure in order to allow introduction of the Selvin O ring, the umbilical skin incision was extended from each edge laterally creating an omega incision. This omega was then closed using 4-0 Monocryl in a subcuticular manner. The right and left lower quadrant ports were also closed in a subcuticular manner with 4-0 Monocryl and then Dermabond was applied at all 3 sites. The final vaginal exam was done, ensuring there were no retained instruments or object and the cuff was intact and the patient was transferred in stable condition to the recovery. I attest to the content of the Intraoperative Record and any orders documented therein. Any exception s are noted below.
--- NOTE | 2018-08-28 07:56 | Discharge Summary ---
Date of Service August 28, 2018 Discharge Data Procedures Performed Operation Date: 08/20/18 07:30 Actual Procedures p Robotic Assisted Total Laparoscopic Hysterectomy with Bilateral Salpingectomies with Excite(Not Applicable) - Elmira Alfaro MD s Cystoscopy(Not Applicable) - Elmira Alfaro MD Hospital Course (1) History of endometrial ablation: Patient had a hysterectomy which was uncomplicated and was discharged on POD0 as per usual practices. She will f/u in office in 2 and 6 weeks.
== END 2018-08-20 17:50 | disposition home or self-care (01) ==
LOC: 4N 05:11 → ASU 05:11